=== PATIENT | male | born 1970 | race Caucasian/White ===

== ENCOUNTER 2021-04-01 23:34 | Observation (INO) | payer OTHER, SELFPAY ==
--- NOTE | ~2021-04-01 | CT_ITS ---
EXAMINATION: CTA chest PE protocol DATE: 04/02/2021 01:17 INDICATION: Chest pain TECHNIQUE: Computed tomography angiography (CTA) of the chest was performed with 100 mL Omnipaque-350 intravenous contrast timed to evaluate the pulmonary arteries. Coronal maximum intensity projection 3D-reconstructions were created by the technologist. The dose-length product (DLP) was 1045.81 mGy-cm . Automated exposure control and iterative reconstruction technique were employed. COMPARISON: None. FINDINGS: The pulmonary arteries are well-opacified. No pulmonary embolism is identified. There is m ild dependent atelectasis. Lungs are free of focal airspace opacities. There is no pleural effusion o r pneumothorax. No pathologically enlarged thoracic lymph nodes are identified. The heart size is nor mal. There is mild thoracic spondylosis. IMPRESSION: 1. No pulmonary embolism or acute cardiopulmonary abnormality. Reviewed, dictated and finalized at location A.
--- NOTE | ~2021-04-01 | XR_ITS ---
EXAMINATION: XR chest 1V portable INDICATION: Chest pain TECHNIQUE: Portable AP chest at 2357 hours COMPARISON: None available FINDINGS: The lungs are free of acute opacities. There is no pleural effusion or pneumothorax. The ca rdiomediastinal silhouette is normal. The visualized bones and soft tissues are unremarkable. IMPRESSION: 1. No acute cardiopulmonary abnormality. Reviewed, dictated and finalized at location A.
--- NOTE | ~2021-04-01 | XR_ITS ---
EXAMINATION: XR thoracic spine 2V DATE: 04/02/2021 09:09 INDICATION: Back pain TECHNIQUE: AP, lateral and lateral swimmer's views of the thoracic spine were obtained. COMPARISON: None. FINDINGS: There is no fracture, dislocation, or subluxation. The vertebral body heights and alignment are normal. There is mild loss of intervertebral disc space height in the midthoracic spine. Small d egenerative osteophytes project from the anterior endplates of multiple vertebral bodies. The paraver tebral soft tissues are unremarkable. IMPRESSION: 1. Mild thoracic spondylosis without acute findings. Reviewed, dictated and finalized at location A.
--- NOTE | 2021-04-01 23:42 | ECG_ITS ---
Measurements Intervals [place] Rate: 75 P: 59 GA: 180 QRS: 10 QRSD: 102 T: 43 QT: 379 QTc: 424 Interpretive Statements SINUS RHYTHM EARLY PRECORDIAL R/S TRANSITION BASELINE ARTIFACT- II, AVF, V1-V6 BORDERLINE ECG Electronically Signed On 04-02-2021 6:02:27 CDT by Martin Croft D.O.
[2021-04-01 23:53] VITALS: BP 172/102; PULSE 90; RESP 20; TEMP 36.4; O2SAT 96
--- NOTE | 2021-04-01 23:54 | ED.CHESTPAIN ---
HPI - Chest Pain General Chief Complaint: Chest Pain Stated Complaint: Left cp and left arm pain Time Seen by Provider: 04/01/21 23:36 Source: RN notes reviewed History of Present Illness HPI narrative: Patient presents to emergency department from home for chest and back pain. Patient states he has had pain in the left upper chest in left upper back by his left shoulder blade that radiates into his left arm since last night. States the pain will wax and wane in intensity but is been present for the past 24 hours pain is described as sharp and stabbing in nature. Nothing makes the pain better or worse he denies any fevers or chills pain over the front of the chest shortness of breath abdominal pain nausea or vomiting or any other symptom Related Data Allergies Allergy/AdvReac Type Severity Reaction Status Date / Time naproxen [From Aleve] Allergy Itching Verified 04/02/21 00:11 Review of Systems Review of Systems: Gen.: Denies fevers or chills ENT: Denies congestion Respiratory: Denies shortness of breath or cough CV: See HPI GI: Denies abdominal pain nausea, emesis or diarrhea Musculoskeletal: HPI Neuro: Denies numbness, tingling, weakness or focal weakness Skin: Denies rash Except as documented, all other systems reviewed and negative PMFSH Past Medical History Medical History (Updated 04/02/21 @ 02:33 by Sung Mcdonald DO) Patient denies significant medical history Social History Social History (Updated 04/02/21 @ 00:18 by Sung Mcdonald DO) Smoking status: Current every day smoker Exam Narrative: APPEARANCE: No acute distress, nontoxic, resting in bed EYES: EOMI HEENT: Normocephalic, atraumatic, OMM RESPIRATORY: No respiratory distress Clear to auscultation bilaterally with no rhonchi wheezing or rales. CARDIOVASCULAR: Regular rate and rhythm without murmurs rubs or gallops. Bilateral radial pulse 2+ ABDOMINAL: Soft, nontender, nondistended, no rebound or guarding MUSCULOSKELETAl: Moves all extremities. No clubbing, cyanosis or edema. Back: No midline thoracic lumbar tenderness palpation mild tenderness over left paravertebral muscles T4-6 NEURO: Awake and alert. Following commands, speech normal, no focal deficits SKIN:: Warm, dry. No rashes lesions or abrasions PSYCHIATRIC: Normal affect/mood, Course Course Emergency Course: Patient states chest pain is resolved with morphine discussed his naproxen allergy and states he can take aspirin Called and discussed with Dr. Arauz presentation work-up agrees with admission at this time Discussed with patient and family results of workup and diagnosis. Discussed need for admission. Patient and family understand and agree to current treatment plan Vital Signs Vital signs: Vital Signs Temperature 97.5 F L 04/01/21 23:53 Pulse Rate 90 04/01/21 23:53 Respiratory Rate 20 04/01/21 23:53 Blood Pressure 172/102 H 04/01/21 23:53 Pulse Oximetry 96 04/01/21 23:53 Temperature 97.5 F L 04/01/21 23:53 Pulse Rate 80 04/02/21 01:00 Respiratory Rate 18 04/02/21 01:00 Blood Pressure 171/104 H 04/02/21 01:00 Pulse Oximetry 96 04/02/21 01:00 MDM - Chest Pain Lab Data Result diagrams: 04/02/21 00:12 04/02/21 00:12 Labs: Lab Results 04/02/21 04/02/21 04/02/21 Range/Units 00:12 00:12 00:12 WBC 6.2 (4.5-10.0) K/mm3 RBC 3.91 L (4.6-6.20) M/mm3 Hgb 12.6 L (14.0-18.0) g/dL Hct 37.4 L (42.0-52.0) % MCV 95.7 (80-100) fl MCH 32.2 (26-34) pg MCHC 33.7 (32-36) g/dl RDW 12.5 (11.5-14.5) % Plt Count 201 (150-375) k/mm3 MPV 9.5 (7.4-10.4) fl Immature Gran % (Auto) 0.3 (0-0.5) % Neut % (Auto) 48.5 (45.5-73.1) % Lymph % (Auto) 38.9 (18.3-44.2) % [place] % (Auto) 8.6 H (2.6-8.5) % Eos % (Auto) 3.2 (0-4.4) % Baso % (Auto) 0.5 (0.2-1.2) % Lymph # (Auto) 2.40 (0.9-3.2) K/mm3 [place] # (Auto) 0.5 (0.1-0.6) K/mm3 Eos # (Auto
[2021-04-02] VITALS (17 sets, daily range): BP systolic 148–180; BP diastolic 80–106; PULSE 63–89; RESP 12–20; TEMP 36.4–36.6; O2SAT 95–100; BMI 42.5
[2021-04-02 00:26] LABS: Basophils Percent Auto 0.5 % (0.2-1.2); Eosinophils Absolute Auto 0.2 K/mm3 (0-0.3); Eosinophils Percent Auto 3.2 % (0-4.4); Hematocrit 37.4 % (42.0-52.0); Hemoglobin 12.6 g/dL (14.0-18.0); Immature Granulocyte Absolute 0.02 K/mm3 (0.00-0.031); Immature Granulocyte Percent A 0.3 % (0-0.5); Lymphocytes Percent Auto 38.9 % (18.3-44.2); Mean Corpuscular HGB Conc 33.7 g/dl (32-36); Mean Corpuscular Hemoglobin 32.2 pg (26-34); Mean Corpuscular Volume 95.7 fl (80-100); Mean Platelet Volume 9.5 fl (7.4-10.4); Monocytes Absolute Auto 0.5 K/mm3 (0.1-0.6); Monocytes Percent Auto 8.6 % (2.6-8.5); Neutrophils Percent Auto 48.5 % (45.5-73.1); Platelet Count Result 201 k/mm3 (150-375); Red Blood Count 3.91 M/mm3 (4.6-6.20); Red Cell Distribution Width 12.5 % (11.5-14.5); White Blood Count 6.2 K/mm3 (4.5-10.0)
[2021-04-02 00:30] LABS: Alanine Aminotransferase 42 U/L (4-50); Albumin Level 3.9 g/dL (3.5-5.1); Alkaline Phosphatase 112 U/L (38-126); Anion Gap 11 mmol/L (8-16); Aspartate Amino Transferase 39 U/L (17-59); Bilirubin,Total 0.1 mg/dL (0.2-1.3); Blood Urea Nitrogen 12 mg/dL (9-20); Calcium 8.5 mg/dL (8.4-10.2); Carbon Dioxide 19 mmol/L (22-30); Chloride 107 mmol/L (98-107); Estimated Glomerular Filt Rate > 60; Glucose 144 mg/dL (65-110); Lipase 89 U/L (23-300); Potassium 3.8 mmol/L (3.4-5.0); Sodium 137 mmol/L (137-145)
[2021-04-02 00:34] LABS: INR 0.8; Partial Thromboplastin Time 27.2 SECONDS (22.3-36.8); Prothrombin Time 11.5 Seconds (11.1-14.7)
[2021-04-02 00:45] LABS: D Dimer 0.27 ug/mL (<0.48)
[2021-04-02 00:48] LABS: Troponin I < 0.012 ng/mL (0.000-0.034)
[2021-04-02] MEDS: MORPHINE SULFATE (*CRX) 2 MG/ML INJ IV PUSH (00:54)
[2021-04-02] MEDS: ASPIRIN 81 MG CHEWABLE TABLET 324 MG PO (02:45)
[2021-04-02 03:22] LABS: Troponin I < 0.012 ng/mL (0.000-0.034)
--- NOTE | 2021-04-02 04:06 | ADMGEN ---
This patient, Tevin Rey, was admitted to IMU Room 205-01. Patient/family oriented to hospital policies and general routines including ID bracelet, bed and alarms, visiting hours, pain management, procedures, bathroom and other care routines, personal items, smoking policy, room service/diet, and visiting hours. Information on how to activate the Rapid Response Team has been discussed. Patient/Family are encouraged to report perceived risks to care and to ask questions if they do not understand what they are told or what they should do. Iqra PROCTOR [id number]
--- NOTE | 2021-04-02 05:30 | PM.IMHP ---
H&P: HPI History of Present Illness Date/Time: 04/02/21 05:30 Chief Complaint: Back pain Narrative: Patient presents to emergency department from home for recurrent upper back pain between his shoulder blade more courses left side that radiated down his left arm started on Friday night. This recurred again and Friday evening and hence came to the ER for evaluation. He has not had any similar episodes in the past. The pain is sharp and stabbing in nature nothing makes it worse or better range between 6-10 intensity before it finally abated. There is no associated shortness of breath or nausea vomiting or diaphoresis associated with the pain. He denies any obvious injury to the area. He denies any obvious chest pain during these episodes either. No abdominal pain nausea vomiting. He was evaluated for possible angina/unstable angina and ID with an EKG which showed no acute ST-T changes. Initial initial troponin was also negative along with rest of the blood work. With regard to his characteristic of the pain and further risk factors such as Tomasa current smoker morbid obesity with BMI of 42 uncontrolled hypertension is referred for observation and coronary artery evaluation. He currently denies any chest pain however the back is still sore. He was given morphine done in the ER and also also been given aspirin full dose. Review of Systems Review of Systems: - CONSTITUTIONAL: Denies weight loss, fever and chills. - HEENT: Denies changes in vision and hearing - RESPIRATORY: Denies SOB and cough. - CV: Denies palpitations and CP. Reports shoulder blade pain - GI: Denies abdominal pain, nausea, vomiting and diarrhea. - : Denies dysuria and urinary frequency. - MSK: Denies myalgia and joint pain. - SKIN: Denies rash and pruritus. - NEUROLOGICAL: Denies headache and syncope. - PSYCHIATRIC: Denies recent changes in mood. Denies anxiety and depression. All systems reviewed & are unremarkable except as noted in HPI and below Constitutional: Constitutional: Reports fatigue and Reports weakness Neurologic: Reports weakness Endocrine: Endocrine: Reports fatigue PMFSH Past Medical History Medical History (Updated 04/02/21 @ 05:39 by William Arauz MD) Patient denies significant medical history Family History Family History (Updated 04/02/21 @ 04:03 by Alethea Jimenez RN) Mother Hypertension Grandparent Diabetes mellitus Social History Social History (Updated 04/02/21 @ 00:18 by Sung Mcdonald DO) Smoking packs per day: 0.5 Smoking cigarettes per day: 10.0 Years smoked: 37 Smoking pack-years: 18.50 Smoking status: Current every day smoker Tobacco type: cigarettes Alcohol intake: current Drinks per week: 42 Substance use: never Gender identity (if verbalized by the patient): Male Spiritual care concerns: No Meds Home Medications and Allergies Home Medications Medication Instructions Recorded Confirmed Type No Home Medications 04/02/21 04/02/21 History Allergies Allergy/AdvReac Type Severity Reaction Status Date / Time naproxen [From Aleve] Allergy Itching Verified 04/02/21 00:11 Vital Signs Vital Signs - 24 hr 04/01/21 23:53 04/02/21 00:30 04/02/21 01:00 Temperature 97.5 F L Pulse Rate 90 80 80 Respiratory Rate 20 20 18 Blood Pressure 172/102 H 166/90 H 171/104 H Pulse Oximetry 96 96 96 04/02/21 03:09 04/02/21 03:47 04/02/21 04:16 Temperature 97.6 F Pulse Rate 81 89 78 Respiratory Rate 17 20 16 Blood Pressure 178/85 H 165/88 H 158/80 H Pulse Oximetry 95 100 98 Exam Narrative: APPEARANCE: No acute distress, comfortable EYES: EOMI, PERRLA HEENT: Normocephalic, atraumatic RESPIRATORY: No respiratory distress Clear to auscultation bilaterally with no rhonchi wheezing or rales. CARDIOVASCULAR: Regular rate and rhythm without murmurs rubs or gallops. Bilateral radial pulse 2+ ABDOMINAL: Soft, nontender, nondistended, no rebound o
[2021-04-02 07:02] LABS: Cholesterol 237 mg/dL (0-200); HDL Direct 53 mg/dL; Triglycerides 234 mg/dL (<150)
[2021-04-02 07:15] LABS: Troponin I < 0.012 ng/mL (0.000-0.034)
[2021-04-02 08:56] LABS: LDL Cholesterol Direct 140 mg/dL
[2021-04-02 09:36] LABS: Hemoglobin A1C 6.2 % (<5.7)
[2021-04-02] MEDS: lisinopriL 10 MG TABLET PO (10:37)
--- NOTE | 2021-04-02 11:01 | ECHO_ITS ---
Patient Info Name: Tevin Rey Age: 51 years : 1970 Gender: Male Ht: 68 in Wt: 279 lbs BSA: 2.53 m2 HR: 65 bpm BP: 173 / 101 mmHg Heart Rhythm: Sinus Rhythm Technical Quality: Fair Exam Date: 04/02/2021 2:08 PM Exam Location: [facility] Card Pulmonary Patient Status: Inpatient Admit Date: 04/02/2021 Staff Ordering Physician: Ezra Gillespie MD School Age Lead Teacher: Jewell Fitch RDCS Attending Provider: Berhane Zuleta MD Referring Physician: Verna ELIZALDE; Exam Type: CA echo dop color flow w con Study Info Indications I10 - Essential (primary) hypertension Complete two-dimensional, color flow and Doppler transthoracic echocardiogram is performed with contrast to opacify the left ventricle and to improve the deliniation of the left ventricle endocardial borders. Contrast/Agitated Saline Contrast/Ag. Saline: Definity Amount: 1.00 ml Administered By: Jocelyn Hussein RN Existing IV Access: Yes IV Access Condition: patent with no signs of infiltration Summary 1. Technically difficult study with limited views. Regional wall motion assessment limited despite definity echo contrast although no clear regional wall motion abnormalities identified. 2. Left ventricular chamber dimension is normal. 3. Left ventricular systolic function is normal, estimated at 55-60%. 4. There is mildly increased left ventricular wall thickness. 5. The left ventricular diastolic function is normal. 6. Right atrial chamber dimension is mildly enlarged. 7. There is trace mitral valve regurgitation. 8. There is trace tricuspid valve regurgitation. 9. Mild pulmonary hypertension, estimated pulmonary arterial systolic pressure is 35 mmHg. Left Ventricle Technically difficult study with limited views. Regional wall motion assessment limited despite definity echo contrast although no clear regional wall motion abnormalities identified. Left ventricular chamber dimension is normal. Left ventricular systolic function is normal, estimated at 55-60%. There is mildly increased left ventricular wall thickness. The left ventricular diastolic function is normal. Right Ventricle Right ventricular chamber dimension is normal. Right ventricular systolic function is normal. Left Atria Left atrial chamber dimension is normal. Right Atria Right atrial chamber dimension is mildly enlarged. Aortic Valve The aortic valve is not well visualized. There is no aortic valve stenosis. There is no aortic valve regurgitation. Pulmonic Valve The pulmonic valve is not well visualized. There is trace pulmonic regurgitation. Mitral Valve The mitral valve has thickened leaflets. There is trace mitral valve regurgitation. The mitral valve annulus is mildly calcified. Tricuspid Valve The tricuspid valve leaflets are normal. There is trace tricuspid valve regurgitation. Mild pulmonary hypertension, estimated pulmonary arterial systolic pressure is 35 mmHg. Pericardium/Pleural The pericardium appears normal. There is no pericardial effusion. Inferior Vena Cava Normal inferior vena cava with >50% collapse upon inspiration consistent with normal right atrial pressure, 5 mmHg. Aorta The aortic root size at the sinus of Valsalva is normal. There is mild aortic atherosclerosis. Left Ventricular Outflow Tract Name Valu
--- NOTE | 2021-04-02 11:07 | PM.CNCAR ---
Assessment and Plan Assessment and plan (1) Back pain: Code(s): M54.9 - Dorsalgia, unspecified Status: Acute Assessment and Plan: Most likely noncardiac, musculoskeletal etiology reproducible with palpation to the left upper back scapular/paraspinal region. Improved lying on left side otherwise no aggravating or relieving factors. He denies chest pain at any time. Pain control per primary service. No further invasive or ischemic workup indicated at this time based on symptom complex. Lifestyle modification counseling. Smoking cessation, weight loss, dietary changes and exercise beneficial. No clear indication for aspirin at this time. Provided pain is improved blood pressure reasonably controlled disposition per hospitalist service. If echocardiogram otherwise unremarkable no directed cardiac follow-up indicated unless he will not have follow-up in short order with primary care physician upon discharge. In that case may see within the next 4 weeks to ensure BP improving prior to establishing with primary care physician. (2) Hypertension: Code(s): I10 - Essential (primary) hypertension Status: Acute Assessment and Plan: Uncontrolled at presentation likely contributing to symptom complex and exacerbated by back pain most likely musculoskeletal etiology. 2D echocardiogram ordered. Will review when available. BP should be better controlled prior to discharge tolerating medical therapy. Would prefer systolic blood pressure less than 150 mm Hg. Patient needs to establish with primary care physicians as possible. Patient was counseled this regard, he agrees. He previously saw Dr. Moreland prior to his assisted. (3) Tobacco abuse: Code(s): Z72.0 - Tobacco use Status: Acute Assessment and Plan: Smoking cessation counseling performed. Patient verbalized understanding. (4) Dyslipidemia: Code(s): E78.5 - Hyperlipidemia, unspecified Status: Acute Assessment and Plan: Lipids elevated, LDL 140. Left modification counseling initially. Statin therapy may be considered if refractory to therapeutic lifestyle modifications. History of Present Illness History of Present Illness Consult date/time: Date of service: 04/02/21 11:07 Cardiology consultation at the request of Dr. Arauz of the [facility] service for opinion regarding complaints of back pain radiating to his arm. 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 He felt he may have been a little dehydrated then on Friday developed left upper back pain described as achy like sensation constant waxing and waning intensity with no noted aggravating or relieving factors with exception of lying on his left side seemed to less than severity. Also radiated down his left arm but then when he checked his blood pressure was quite high so at the request of his present to the emergency department. He was noted be hypertensive, serial troponins negative without acute ischemic changes on EKG. Patient states his back pain comes and goes can be quite intense otherwise mild in general. He did not note any improvement with other medications provided. Blood pressure was 180/106 mm Hg this morning for which lisinopril 10 mg daily was ordered. He otherwise feels fine denies headache, shortness of breath, palpitations, nausea vomiting. No near-syncope or syncope. He has no other prior known history of CAD or myocardial infarction. Review of Systems Review of [employer]
--- NOTE | 2021-04-02 13:04 | PM.IMPN ---
Progress Note: A&P Assessment and Plan (1) Chest pain: Code(s): R07.9 - Chest pain, unspecified Status: Acute (2) Hypertension: Code(s): I10 - Essential (primary) hypertension Status: Acute (3) Snoring: Code(s): R06.83 - Snoring Status: Acute Additional Plan # Atypical chest pain/Back pain with radiation to his arm doubt cardiac in origin however does have risk factors with current smoker uncontrolled hypertension. Cardiology evaluation for possible stress test. Obtain echo. D-dimer negative CTA negative for any PE. # Hypertension diagnosed few years back not on any medicine. started lisinopril 10 mg daily, added amlodipine 10 mg daily. # Back pain: x-rays thoracic spine showed mild thoracic spondylosis without acute findings. # Current smoker cousnled on smoking cessation. # DVT prophylaxis Lovenox # hx of snoring: with morbid obesity, will need evaluation for sleep apnea # morbid obesity # Full code status Subjective Date/time seen: 04/02/21 13:04 He reports his chest pain has resolved. Uneventful night. Hemodynamically stable. Nurse reports concern about sleep apnea. His troponins have been negative. Review of Systems Review of Systems: All systems reviewed & are unremarkable except as noted in HPI and below Exam Narrative: Gen: Alert, NAD Abd: Soft, NT, ND Heart: RRR Lungs: CTAB Ext: No lower extremity edema Objective Data Vital Signs Vital Signs: Vital Signs - 24 hr 04/01/21 23:53 04/02/21 00:30 04/02/21 01:00 Temperature 97.5 F L Pulse Rate 90 80 80 Respiratory Rate 20 20 18 Blood Pressure 172/102 H 166/90 H 171/104 H Pulse Oximetry 96 96 96 04/02/21 03:09 04/02/21 03:47 04/02/21 04:16 Temperature 97.6 F Pulse Rate 81 89 78 Respiratory Rate 17 20 16 Blood Pressure 178/85 H 165/88 H 158/80 H Pulse Oximetry 95 100 98 04/02/21 06:00 04/02/21 08:00 04/02/21 10:00 Temperature 97.9 F Pulse Rate 76 76 81 Respiratory Rate 12 Blood Pressure 180/106 H Pulse Oximetry 95 04/02/21 11:41 Temperature 98 F Pulse Rate 73 Respiratory Rate 12 Blood Pressure 173/101 H Pulse Oximetry 96 Intake/Output Intake/Output: Intake & Output 03/30/21 03/31/21 04/01/21 04/02/21 23:59 23:59 23:59 23:59 Output Total 0 Balance 0 Meds/Results Medications: Active Medications Generic Name Dose Route Start Last Admin Trade Name Dileepq PRN Reason Stop Dose Admin Lisinopril 10 mg 04/02/21 09:00 04/02/21 10:37 Lisinopril 10 Mg Tablet PO 10 mg DAILY CHRISTOPHER Administration Radiology Results: ITS Impressions Chest X-Ray 04/02/21 07:36 IMPRESSION: 1. No acute cardiopulmonary abnormality. Chest CTA 04/02/21 08:16 IMPRESSION: 1. No pulmonary embolism or acute cardiopulmonary abnormality. Thoracic Spine X-Ray 04/02/21 10:33 IMPRESSION: 1. Mild thoracic spondylosis without acute findings. Labs Labs: Laboratory Results - last 24 hr 04/02/21 04/02/21 04/02/21 00:12 00:12 00:12 WBC 6.2 RBC 3.91 L Hgb 12.6 L Hct 37.4 L MCV 95.7 MCH 32.2 MCHC 33.7 RDW 12.5 Plt Count 201 MPV 9.5 Immature Gran % (Auto) 0.3 Neut % (Auto) 48.5 Lymph % (Auto) 38.9 [place] % (Auto) 8.6 H Eos % (Auto) 3.2 Baso % (Auto) 0.5 Lymph # (Auto) 2.40 [place] # (Auto) 0.5 Eos # (Auto) 0.2 Baso # (Auto) 0.0 Abs Immat Gran (auto) 0.02 Absolute Neuts (auto) 3.0 Absolute Nucleated RBC 0.0 Nucleated RBC % 0.0 PT 11.5 INR 0.8 APTT 27.2 D-Dimer 0.27 Sodium 137 Potassium 3.8 Chloride 107 Carbon Dioxide 19 L Anion Gap 11 BUN 12 Creatinine 0.70 Estim Creat Clear Calc Not Reportable Estimated GFR > 60 Glucose 144 H Hemoglobin A1c Calcium 8.5 Total Bilirubin 0.1 L AST 39 ALT 42 Alkaline Phosphatase 112 Troponin I < 0.012 Total Protein 7.0 Albumin 3.9 Triglycerides Cholesterol
[2021-04-02] MEDS: PERFLUTREN LIPID MICROSPHERES 1.5 ML VIAL DILUTED TO 10 ML TOTAL VOLUME IV PUSH (14:42)
[2021-04-02] MEDS: amLODIPine BESYLATE 5 MG TABLET 10 MG PO (14:49)
[2021-04-02] MEDS: ACETAMINOPHEN/ASPIRIN/CAFFEINE 250-250-65 MG TABLET 1 TABLET PO (21:56)
[2021-04-03] VITALS (7 sets, daily range): BP systolic 160–166; BP diastolic 87–99; PULSE 48–87; RESP 18–20; TEMP 36.6; O2SAT 97–100
[2021-04-03 05:38] LABS: Basophils Percent Auto 0.4 % (0.2-1.2); Eosinophils Absolute Auto 0.2 K/mm3 (0-0.3); Eosinophils Percent Auto 3.2 % (0-4.4); Hematocrit 40.8 % (42.0-52.0); Hemoglobin 13.4 g/dL (14.0-18.0); Immature Granulocyte Absolute 0.02 K/mm3 (0.00-0.031); Immature Granulocyte Percent A 0.3 % (0-0.5); Lymphocytes Absolute Auto 2.01 K/mm3 (0.9-3.2); Lymphocytes Percent Auto 27.2 % (18.3-44.2); Mean Corpuscular HGB Conc 32.8 g/dl (32-36); Mean Corpuscular Hemoglobin 31.8 pg (26-34); Mean Corpuscular Volume 96.7 fl (80-100); Mean Platelet Volume 9.8 fl (7.4-10.4); Monocytes Absolute Auto 0.6 K/mm3 (0.1-0.6); Monocytes Percent Auto 8.5 % (2.6-8.5); Neutrophils Absolute Auto 4.5 K/mm3 (1.3-6.7); Neutrophils Percent Auto 60.4 % (45.5-73.1); Platelet Count Result 204 k/mm3 (150-375); Red Blood Count 4.22 M/mm3 (4.6-6.20); Red Cell Distribution Width 12.6 % (11.5-14.5); White Blood Count 7.4 K/mm3 (4.5-10.0)
[2021-04-03 05:59] LABS: Alanine Aminotransferase 41 U/L (4-50); Albumin Level 3.9 g/dL (3.5-5.1); Alkaline Phosphatase 82 U/L (38-126); Anion Gap 5 mmol/L (8-16); Aspartate Amino Transferase 35 U/L (17-59); Bilirubin,Total 0.5 mg/dL (0.2-1.3); Blood Urea Nitrogen 16 mg/dL (9-20); Calcium 8.9 mg/dL (8.4-10.2); Carbon Dioxide 24 mmol/L (22-30); Chloride 107 mmol/L (98-107); Estimated CRCL calculation 141 ml/min; Estimated Glomerular Filt Rate > 60; Glucose 99 mg/dL (65-110); Potassium 4.1 mmol/L (3.4-5.0); Sodium 136 mmol/L (137-145)
[2021-04-03] MEDS: ACETAMINOPHEN/ASPIRIN/CAFFEINE 250-250-65 MG TABLET 1 TABLET PO (06:53)
[2021-04-03] MEDS: lisinopriL 10 MG TABLET PO (09:14)
[2021-04-03] MEDS: amLODIPine BESYLATE 5 MG TABLET 10 MG PO (09:14)
--- NOTE | 2021-04-03 10:17 | PM.DS ---
DS: Admitting Diagnosis Admitting Diagnosis Chest pain DS: Discharge Diagnosis Discharge Diagnosis (1) Chest pain: Code(s): R07.9 - Chest pain, unspecified Status: Acute (2) Hypertension: Code(s): I10 - Essential (primary) hypertension Status: Acute (3) Snoring: Code(s): R06.83 - Snoring Status: Acute (4) Tobacco abuse: Code(s): Z72.0 - Tobacco use Status: Acute (5) Dyslipidemia: Code(s): E78.5 - Hyperlipidemia, unspecified Status: Acute DS: Summary Hospital Course Hospital Course: This as a 51-year-old gentleman with medical history of nicotine dependence and obesity, who presented to the emergency department on 04/02 with left-sided chest pain radiating to his left arm and his back. This was sharp and stabbing in nature and changed with position. No associated shortness of breath or other symptoms. In the emergency department, he was noted to be hemodynamically stable. EKG showed sinus rhythm and no significant findings for ischemia. CTA of the chest was unremarkable. He was admitted to the hospital and followed by Cardiology. Echocardiogram showed EF 55-60%, mildly increased left ventricular wall thickness, mild pulmonary hypertension with estimated systolic pulmonary arterial pressure 35. He was monitored closely on telemetry, was noted to have an elevated blood pressure throughout his hospital stay. He was initiated on amlodipine 10 mg daily along with lisinopril 10 mg daily. His blood work showed normal troponin. Normal electrolyte panel and kidney function. He did have elevated LDL of 140, total cholesterol 237, triglycerides 234. HDL was 53. Given no evidence of ischemic heart disease, it was recommended that he would undergo lifestyle modification with weight loss, exercise and smoking cessation which was discussed in detail. Given evidence of snoring, overnight oximetry was done and showed significant drops in saturation. Recommend close follow-up in outpatient setting with primary provider to reassess clinically and refer for sleep study. Time Spent with Patient Time attestation: Total time spent providing and/or coordinating discharge services: 40 min Exam Narrative: Gen: Alert, NAD Abd: Soft, NT, ND Heart: RRR Lungs: CTAB Ext: No lower extremity edema DS: Data Data Completed and Pending Labs on day of discharge: Labs from last 24 hours 04/03/21 04/03/21 05:07 05:07 WBC 7.4 RBC 4.22 L Hgb 13.4 L Hct 40.8 L MCV 96.7 MCH 31.8 MCHC 32.8 RDW 12.6 Plt Count 204 MPV 9.8 Immature Gran % (Auto) 0.3 Neut % (Auto) 60.4 Lymph % (Auto) 27.2 Edgar % (Auto) 8.5 Eos % (Auto) 3.2 Baso % (Auto) 0.4 Lymph # (Auto) 2.01 [place] # (Auto) 0.6 Eos # (Auto) 0.2 Baso # (Auto) 0.0 Abs Immat Gran (auto) 0.02 Absolute Neuts (auto) 4.5 Absolute Nucleated RBC 0.0 Nucleated RBC % 0.0 Sodium 136 L Potassium 4.1 Chloride 107 Carbon Dioxide 24 Anion Gap 5 L BUN 16 Creatinine 0.70 Estim Creat Clear Calc 141 Estimated GFR > 60 Glucose 99 Calcium 8.9 Total Bilirubin 0.5 AST 35 ALT 41 Alkaline Phosphatase 82 Total Protein 7.0 Albumin 3.9 Discharge Plan Discharge Consulting providers: Armando Millan Discharging Clinician: Berhane Zuleta Anticipated Discharge Date/Time: 04/03/21 10:24 Patient Disposition: Home, Self-Care Activity: as tolerated Diet: heart healthy Discharge Instructions: 1. Please establish and follow up with primary provider within 1-2 weeks of discharge 2. Your oxygenation assessment during sleep showed possible sleep apnea, this will need to be confirmed in the outpatient setting through a sleep study, which can be done through a referral by your primary provider 3. Follow-up with cardiology and 4 weeks of discharge 4. Continue to work on smoking cessation as per our discussion during your hospitalization P
== END 2021-04-03 12:02 | disposition home or self-care (01) ==
LOC: ANHED 04-02 02:33 → ANHIMU 04-02 03:24
PROVIDERS: Admitting Provider Internal Medicine; Emergency Provider Emergency Medicine; Visit Provider Internal Medicine Nephrology
DX: R07.9 Chest pain, unspecified (principal); M54.9 Dorsalgia, unspecified; F17.210 Nicotine dependence, cigarettes, uncomplicated; E66.01 Morbid (severe) obesity due to excess calories; Z68.41 Body mass index [BMI] 40.0-44.9, adult; I10 Essential (primary) hypertension; R06.83 Snoring; E78.5 Hyperlipidemia, unspecified
CPT/HCPCS: 36415; 71045; 71275; 72070; 80053; 80061; 83036; 83690; 84484; 85025; 85380; 85610; 85730; 93005; 94762; 96374; 96375; 99285; A9270; C8929; G0378; J0131; J2270; Q9957; Q9967

== ENCOUNTER 2024-08-31 15:47 | Emergency (ER) | payer OTHER, SELFPAY ==
--- NOTE | ~2024-08-31 | XR_ITS ---
EXAMINATION: XR chest 2V DATE: 08/31/2024 16:16 INDICATION: Cough, shortness of breath and fever TECHNIQUE: PA and lateral views of the chest were obtained. COMPARISON: Chest radiograph dated 04/01/[address] dated 04/02/2021 FINDINGS: The lungs remain clear with no focal airspace opacities, pulmonary edema, pleural effusion or pneumot horax. The cardiomediastinal silhouette is normal. Mild thoracic spondylosis. IMPRESSION: 1. No acute cardiopulmonary disease. Reviewed, dictated and finalized at location A. F CONTRACT OFFICER
--- NOTE | 2024-08-31 15:49 | ED_ITS ---
HPI - URI/Sore Throat General Chief Complaint: Upper Respiratory Infection Stated Complaint: Cough Time Seen by Provider: 08/31/24 15:49 Source: patient Mode of arrival: ambulatory Limitations: no limitations History of Present Illness HPI Narrative: Tevin is a 54-year-old male patient presenting to the clinic today with complaints of a cough x1 week with increasing shortness of breath. Feels as though he developed fever yesterday. Has a productive cough with some yellow phlegm at times. He is a current smoker smoking approximately 1/2 pack per day. Blood pressure is elevated in the clinic today-203/128 197/128. Has taken some cold medicine with caffeine in it. Reports he is not had his anti hypertension medications a couple months since his doctor has retired. MD elicited complaint: sore throat and nasal congestion Related Data Allergies Allergy/AdvReac Type Severity Reaction Status Date / Time naproxen (From Aleve) Allergy Itching Verified 08/31/24 15:49 Review of Systems Review of Systems: Pertinent positives per HPI. Patient denies any rash, headache, visual changes, dizziness, chest pain, palpitations, nausea, vomiting, diarrhea, constipation, abdominal pain, or any urinary issues. PMFSH Past Medical History Medical History Patient denies significant medical history Family History Family History Mother Hypertension Grandparent Diabetes mellitus Social History Social History Smoking packs per day: 0.5 Smoking cigarettes per day: 10.0 Years smoked: 37 Smoking pack-years: 18.50 Smoking status: Current every day smoker Tobacco type: cigarettes Alcohol intake: current Drinks per week: 42 Substance use: never Gender identity (if verbalized by the patient): Male Spiritual care concerns: No Comments At the time of my signature, I reviewed and agree with the nursing past medical, surgical, social, and family history. There is no relevant family history pertinent to the patient complaint. Exam Narrative: General: Well-developed, well nourished, in no apparent distress Head: Normocephalic, atraumatic Eyes: Pupils equally round and reactive to light bilaterally, EOM intact, sclera and conjunctive clear, no discharge, lids normal Ears: TMs intact and congested, ear canals clear, no drainage, grossly hearing normal. Nose: Nares patent, clear nasal discharge, no inflammation, no sinus tenderness. Mouth: Oral pharynx red without lesions or masses, good dentition, MMM. Postnasal drip Neck: Supple, trachea midline, no enlargement of anterior or posterior cervical nodes, no thyroid masses or goiter palpable. Cardio: Regular rate and rhythm, s1 and s2 normal, no murmur appreciated. Resp: Expiratory wheezing with some rhonchi heard over the left lower lung field, no rales or rubs Course Course Emergency Course: Portions of this record may have been created with voice recognition software. Level of Care: Express Care Visit Vital Signs Vital signs: Vital Signs Temperature 38.8 C H 08/31/24 16:00 Pulse Rate 109 H 08/31/24 16:00 Respiratory Rate 16 08/31/24 16:00 Blood Pressure 203/128 H 08/31/24 16:00 Pulse Oximetry 95 08/31/24 16:00 Oxygen Delivery Room Air 08/31/24 16:00 Temperature 38.8 C H 08/31/24 16:00 Pulse Rate 109 H 08/31/24 16:00 Respiratory Rate 16 08/31/24 16:00 Blood Pressure 203/128 H 08/31/24 16:00 Pulse Oximetry 95 08/31/24 16:00 Oxygen Delivery Room Air 08/31/24 16:00 Vital signs reviewed MDM - URI/Sore Throat MDM Narrative Medical decision making narrative: At the time of visit patient is resting comfortably on the exam table. Patient appears to be nontoxic. Labs: COVID and influenza testing was performed. All testing was negative Diagnostics: Chest x-ray was performed and is negative for any acute cardiopulmonary process. Plan: I suspect patient has URI with cough and congestion/bronchitis/hypertension. Resume his antihypertensive medications for [address] him on albuterol inhaler and azithromycin. Supportive measures were discussed with the patient and they voiced understanding discharge instructions and agrees to treatment plan. Return precautions reviewed Differential Diagnosis Differential diagnosis: Likely upper respiratory infection, otitis media, sinusitis, viral infection, bronchitis, influenza, pharyngitis and other (COVID) Lab Data Labs: Lab Results 08/31/24 Range/Units 16:05 POC Influenza A Ag Negative (Negative) POC Influenza B Ag Negative (Negative) POC SARS CoV-2 Ag Negative (Negative) Imaging Data Radiologist's impression: ITS Impressions Chest X-Ray 08/31/24 16:22 IMPRESSION: 1. No acute cardiopulmonary disease. Discharge Plan Discharge Clinical Impression: Bronchitis, Upper respiratory infection with cough and congestion Hypertension Qualifiers: Hypertension type: primary hypertension Qualified Code(s): I10 - Essential (primary) hypertension Patient Disposition: Home, Self-Care Condition: Stable Instructions: Antibiotic Form, Acute Bronchitis (ED), Hypertension (ED), Cold Symptoms (ED) Additional Instructions: Chest x-rays negative for any acute cardiopulmonary process. Influenza and COVID testing was negative. Take prescription medications only as prescribed-amlodipine, lisinopril, azithro mycin, and albuterol inhaler May take Coricidin HBP for cold/flu symptoms Increase fluids and stay well hydrated Tylenol/motrin for pain/fever Flonase and OTC antihistamines as directed Vicks vapor rub to open sinuses Sinus rinses for congestion Cepacol spray, cough drops, throat lozenges, warm tea with honey/lemon, gargle salt water to soothe throat BRAT diet for diarrhea Clear liquids x 24 hours then advance as tolerated for nausea/vomiting Go to the ED if you develop a worsening in your condition- high fever not controlled by Tylenol or Motrin, dehydration, weakness, lethargy, shortness of breath, or chest pain. Follow up with your PCP in 3-5 days if symptoms persist. You have an elevated blood pressure in the clinic today and I recommend follow- up with primary care physician to have this reevaluated within the next week if symptoms persist. [place] [facility] guidelines state that normal blood pressure is 120/80 or less. Anything over 120/80 is considered elevated and should be monitored. You may need to decrease you salt intake and eat a heart healthy diet to help lower you blood pressure, other treatments would include decreasing stress, weight loss, stop caffeine, and quit smoking. Your primary care provider can determine whether you need to start antihypertensive medications. Untreated high blood pressure can cause dizziness, headaches, visual changes, blindness, kidney failure, stroke, heart attack, and male impotence. Patient Language: Mongolian Prescriptions: New amlodipine [Norvasc] 10 mg tablet 10 mg PO DAILY 30 Days Qty: 30 0RF lisinopril 10 mg tablet 10 mg PO DAILY 30 Days Qty: 30 0RF azithromycin 250 mg tablet See Rx Instructions .ROUTE .COMPLEX Qty: 6 0RF Rx Instructions: For 250 mg dose pack: take 500 mg today (day 1), then 250 mg for 4 days (days 2-5) albuterol sulfate 90 mcg/actuation HFA aerosol inhaler 2 puff inhalation Q4-6H PRN (Reason: shortness of breath or wheezing) 30 Days Qty: 8.5 0RF No Action amlodipine [Norvasc] 5 mg Tablet 10 mg PO QAM Qty: 30 0RF lisinopril 10 mg Tablet 10 mg PO DAILY Qty: 30 0RF Follow-up/Referrals: UNKNOWN,DOCTOR [Non-Staff] - Time of Disposition: 16:29 Quality NIHSS Nursing Documentation ED NIHSS nursing documentation: reviewed/agree
[2024-08-31 16:00] VITALS: BP 203/128; PULSE 109; RESP 16; TEMP 38.8; O2SAT 95
[2024-08-31 16:26] LABS: EDCOVIDSCREEN Negative (Negative); EDINFLUASCREEN Negative (Negative); EDINFLUBSCREEN Negative (Negative)
== END 2024-08-31 16:35 | disposition home or self-care (01) ==
PROVIDERS: Emergency Provider Nurse Practitioner Family
DX: J40 Bronchitis, not specified as acute or chronic (principal); J06.9 Acute upper respiratory infection, unspecified; R05.9 Cough, unspecified; I10 Essential (primary) hypertension; Z20.822 Contact with and (suspected) exposure to COVID-19; F17.210 Nicotine dependence, cigarettes, uncomplicated
CPT/HCPCS: 71046; 87426; 87804; 99213; G0463

== ENCOUNTER 2024-12-30 12:36 | Observation (INO) | payer OTHER, SELFPAY ==
[2024-12-30] VITALS (15 sets, daily range): BP systolic 183–220; BP diastolic 90–134; PULSE 79–93; RESP 15–26; TEMP 36.2–36.6; O2SAT 97–99; BMI 36.6
--- NOTE | ~2024-12-30 | XR_ITS ---
EXAMINATION: XR chest 2V DATE: 12/30/2024 14:21 INDICATION: Shortness of breath TECHNIQUE: PA and lateral views of the chest were obtained. COMPARISON: Chest radiograph dated 08/31/2024 FINDINGS: Mild linear discoid atelectasis/scarring at the left costophrenic angle. No other airspace opacities, pulmonary edema, pleural effusion or pneumothorax. The cardiomediastinal silhouette is normal. Mild thoracic and moderate upper lumbar spondylosis. IMPRESSION: 1. Mild atelectasis/scarring at the left costophrenic angle. No other acute cardiopulmonary disease. Reviewed, dictated and finalized at location A. IMPRESSION: 1. Mild atelectasis/scarring at the left costophrenic angle. No other acute car diopulmonary disease.
--- OUTSIDE RECORDS SUMMARY | 2024-12-30 12:39 | XMS_ITS | Clinical Summary ---
Author Organization [facility] Care Team Providers Care Pattern Maker Programer Name Role Phone Unavailable Primary Care Provider Unavailabl e Social History Tobacco Use Types Packs/Day Years Used Date Smoking Tobacco: Never Assessed Sex and Gender Information Value Date Recorded Sex Assigned at Not on file Legal Sex Male 3:53 PM CDT Gender Identity Not on file Sexual Orientation Not on file Plan of Treatment Health Maintenance Due Date Last Done Comments Hepatitis C Virus (HCV) Screening 1971 TdaP Immunization 1971 Hepatitis B Immunization (1 of 3 - 19+ 3-dose series) 1990 Colonoscopy 02/22/2016 Colorectal Cancer Screening 02/22/2016 Cologuard 2021 Immunochemical Fecal Occult Blood 2021 Pneumococcal Immunization (5 0+ years) (1 of 1 - PCV) 2021 Zoster Immunization (1 of 2) 2021 Influenza Immunization (#1) 2024 SARS-COV-2 Immunization (3 - 2023- season) 2024 10/21/2020, 09/23/2020 Respiratory Syncytial Virus (RSV) Immunization (Adult) (1 - 1-dose 75+ series) 2046 Meningococcal Immunization (ACWY) Aged Out No longer eligible b ased on patient's age to complete this topic Pneumococcal Immunization Combined Aged Out No longer eligible b ased on patient's age to complete this topic Rotavirus Immunization Aged Out No lo nger eligible based on patient's age to complete this topic
--- NOTE | 2024-12-30 12:51 | ECG_ITS ---
Test Date: 2024-12-30 13:49:16 Measurements Intervals Laie Rate: 87 P: 41 ME: 180 QRS: 10 QRSD: 112 T: 129 QT: 388 QTc: 468 Interpretive Statements SINUS RHYTHM POSSIBLE LEFT ATRIAL ENLARGEMENT [-0.1mV P WAVE IN V1/V2] LEFT VENTRICULAR HYPERTROPHY AND ST-T CHANGE [VOLTAGE CRITERIA PLUS ST/T ABNORMALITY] No previous ECG available for comparison Electronically Signed On 12-31-2024 11:06:20 CDT by Александр Jin M.D.
--- NOTE | 2024-12-30 13:43 | ED_ITS ---
HPI - Recheck/Abnormal Lab/Rx General Chief Complaint: Recheck/Abnormal Lab/Rx <Stephanie Wallis PA-C - Last Filed: 12/31/24 09:26> Stated Complaint: htn, shortness of breath <Stephanie Wallis PA-C - Last Filed: 12/31/24 09:26> Time Seen by Provider: 12/30/24 13:43 <Stephanie Wallis PA-C - Last Filed: 12/31/24 09:26> Focused HPI: This is a 54 year old male that presents to the ER for evaluation after a PCP visit. Reports he has had some shortness of breath over the last month, worse with exertion. Reports when they took his vital signs at his appointment today his blood pressure was very elevated and they prompted him to be seen in the ER. Reports he has not taken his blood pressure medication in a couple of months. Reports some lower extremity edema. GENERAL: Well-appearing, well-nourished, and in no acute distress. HEAD: Normocephalic, atraumatic. CHEST: Clear to auscultation. ?No respiratory distress. HEART: Regular rate and rhythm.? NEURO: ?Alert and oriented x3. Patient screened in triage and initial orders placed.? ?Additional care and disposition to be based upon?diagnostic testing and treatment. <Stephanie Wallis PA-C - Last Filed: 12/31/24 09:26> History of Present Illness HPI narrative: rib fractures patient did 4-year-old gentleman presents emergency department with chief complaint of shortness of breath. Patient states that he has had history of hypertension and reports that he has been out of his blood pressure medicine since approximately August the patient reports that he went to establish care with a primary care provider in found his blood pressure to be extremely elevated in the 200s and the patient also reports that over the last month he has been having shortness of breath worse with exertion the patient also reports he has had some trace edema in his lower extremities <Bronson Avina MD - Last Filed: 12/30/24 15:50> Related Data Allergies/Adverse Reactions: Allergies Allergy/AdvReac Type Severity Reaction Status Date / Time naproxen (From Aleve) Allergy Itching Verified 12/30/24 12:50 <Stephanie Wallis PA-C - Last Filed: 12/31/24 09:26> Review of Systems 2 Review of Systems: A 10 system review of systems was completed on the patient and is negative except for what is stated in the HPI. Nursing and ancillary documentation was reviewed. <Bronson Avina MD - Last Filed: 12/30/24 15:50> [facility] Past Medical History Medical History: Medical History (Updated 12/30/24 @ 21:52 by Josie Nielsen APRN) Tobacco abuse Hypertension BMI 38.0-38.9,adult Dyslipidemia <Stephanie Wallis PA-C - Last Filed: 12/31/24 09:26> Family History Family History: Family History Mother Hypertension Grandparent Diabetes mellitus Father No problems noted. Sibling No problems noted. <Stephanie Wallis PA-C - Last Filed: 12/31/24 09:26> Social History Social History: Social History Smoking packs per day: 1 Smoking cigarettes per day: 20.0 Years smoked: 40 Smoking pack-years: 40.00 Smoking status: Current every day smoker Tobacco type: cigarettes Second hand tobacco smoke exposure: No Alcohol intake: current Drinks per week: 42 Substance use: never Substance use type: does not use Do You Feel Safe in your Home?: Yes Lack of Transportation: No Lack of Food: Never True Current Housing: I Have Housing Concerned About Future Housing: No Difficulty Paying Gas/Electric Bills: No Difficulty Paying for Meds: No Currently Unemployed: No Education: High School Diploma/GED Difficulty w/ Childcare or Family Care: No Living arrangements: with family 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 HEAD: Normocephalic, atraumatic. EYES: PERRLA and EOMI. ENT: Nares clear, no rhinorrhea or epistaxis. Mucous membranes moist. NECK: Supple. CHEST: Clear to auscultation. No respiratory distress. HEART: Regular rate and rhythm. No murmur heard. Normal peripheral pulses. ABDOMEN: Soft, nontender, nondistended, normal active bowel sounds. EXTREMITIES: Normal range of motion. Trace edema. SKIN: Warm, dry, no rash. NEURO: No focal deficits. Alert and oriented x3. PSYCH: Normal mood and affect. <Bronson Avina MD - Last Filed: 12/30/24 15:50> Course Vital Signs Vital signs: Vital Signs Temperature 97.2 F L 12/30/24 12:48 Pulse Rate 93 12/30/24 12:48 Respiratory Rate 16 12/30/24 12:48 Blood Pressure 219/115 H 12/30/24 12:48 Pulse Oximetry 97 12/30/24 12:48 Temperature 97.8 F 12/31/24 08:00 Pulse Rate 85 12/31/24 08:00 Respiratory Rate 18 12/31/24 08:00 Blood Pressure 206/128 H 12/31/24 08:00 Pulse Oximetry 99 12/31/24 08:00 Oxygen Delivery Room Air 12/31/24 04:00 <Stephanie Wallis PA-C - Last Filed: 12/31/24 09:26> Vital Signs Temperature 97.2 F L 12/30/24 12:48 Pulse Rate 93 12/30/24 12:48 Respiratory Rate 16 12/30/24 12:48 Blood Pressure 219/115 H 12/30/24 12:48 Pulse Oximetry 97 12/30/24 12:48 Temperature 97.8 F 12/31/24 08:00 Pulse Rate 85 12/31/24 08:00 Respiratory Rate 18 12/31/24 08:00 Blood Pressure 206/128 H 12/31/24 08:00 Pulse Oximetry 99 12/31/24 08:00 Oxygen Delivery Room Air 12/31/24 04:00 <Bronson Avina MD - Last Filed: 12/30/24 15:50> MDM - Recheck/Abnormal Lab/Rx MDM Narrative Medical decision making narrative: differential diagnosis includes hypertensive crisis, ACS, CHF EKG showed LVH without evidence of acute ST elevation or ST depression. Laboratory studies showed a BNP of 3750 troponin was elevated at 0.073 patient is not having active chest pain at this time <Bronson Avina MD - Last Filed: 12/30/24 15:50> Lab Data Result diagrams: 12/30/24 13:53 12/30/24 13:53 <Stephanie Wallis PA-C - Last Filed: 12/31/24 09:26> Labs: Lab Results 12/30/24 Range/Units 13:53 WBC 6.5 (4.5-10.0) K/mm3 RBC 4.49 L (4.6-6.20) M/mm3 Hgb 14.2 (14.0-18.0) g/dL Hct 42.7 (42.0-52.0) % MCV 95.1 (80-100) fl MCH 31.6 (26-34) pg MCHC 33.3 (32-36) g/dl RDW 12.4 (11.5-14.5) % Plt Count 168 (150-375) k/mm3 MPV 9.9 (7.4-10.4) fl Immature Gran % (Auto) 0.3 (0-0.5) % Neut % (Auto) 64.9 (45.5-73.1) % Lymph % (Auto) 22.9 (18.3-44.2) % [place] % (Auto) 9.2 H (2.6-8.5) % Eos % (Auto) 2.2 (0-4.4) % Baso % (Auto) 0.5 (0.2-1.2) % Lymph # (Auto) 1.49 (0.9-3.2) K/mm3 [place] # (Auto) 0.6 (0.1-0.6) K/mm3 Eos # (Auto) 0.1 (0-0.3) K/mm3 Baso # (Auto) 0.0 (0.0-0.1) K/mm3 Abs Immat Gran (auto) 0.02 (0.00-0.031) K/mm3 Absolute Neuts (auto) 4.2 (1.3-6.7) K/mm3 Absolute Nucleated RBC 0.000 (0.0-0.012) K/mm3 Nucleated RBC % 0.0 (0.0-0.2) % PT 12.6 (11.1-14.7) Seconds INR 0.9 APTT 26.2 (22.3-36.8) Seconds Sodium 137 (137-145) mmol/L Potassium 3.7 (3.4-5.0) mmol/L Chloride 105 (98-107) mmol/L Carbon Dioxide 25 (22-30) mmol/L Anion Gap 7 (4-12) mmol/L BUN 27 H D (9-20) mg/dL Creatinine 1.09 (0.7-1.3) mg/dL Estim Creat Clear Calc 89 ml/min Estimated GFR > 60 (59 - ) Glucose 149 H (65-110) mg/dL Hemoglobin A1c 5.9 H (<5.7) % Calcium 9.2 (8.4-10.2) mg/dL Total Bilirubin 0.6 (0.2-1.3) mg/dL AST 48 (17-59) U/L ALT 47 (6-50) U/L Alkaline Phosphatase 108 (38-126) U/L Troponin I 0.073 H* (0.000-0.034) ng/mL NT-Pro-B Natriuret Pep 3750 H (19.9-100) pg/mL Total Protein 7.0 (6.3-8.2) g/dL Albumin 4.0 (3.5-5.1) g/dL Lipase 227 (23-300) U/L <Stephanie Wallis PA-C - Last Filed: 12/31/24 09:26> Lab Results 12/30/24 Range/Units 13:53 WBC 6.5 (4.5-10.0) K/mm3 RBC 4.49 L (4.6-6.20) M/mm3 Hgb 14.2 (14.0-18.0) g/dL Hct 42.7 (42.0-52.0) % MCV 95.1 (80-100) fl MCH 31.6 (26-34) pg MCHC 33.3 (32-36) g/dl RDW 12.4 (11.5-14.5) % Plt Count 168 (150-375) k/mm3 MPV 9.9 (7.4-10.4) fl Immature Gran % (Auto) 0.3 (0-0.5) % Neut % (Auto) 64.9 (45.5-73.1) % Lymph % (Auto) 22.9 (18.3-44.2) % [place] % (Auto) 9.2 H (2.6-8.5) % Eos % (Auto) 2.2 (0-4.4) % Baso % (Auto) 0.5 (0.2-1.2) % Lymph # (Auto) 1.49 (0.9-3.2) K/mm3 [place] # (Auto) 0.6 (0.1-0.6) K/mm3 Eos # (Auto) 0.1 (0-0.3) K/mm3 Baso # (Auto) 0.0 (0.0-0.1) K/mm3 Abs Immat Gran (auto) 0.02 (0.00-0.031) K/mm3 Absolute Neuts (auto) 4.2 (1.3-6.7) K/mm3 Absolute Nucleated RBC 0.000 (0.0-0.012) K/mm3 Nucleated RBC % 0.0 (0.0-0.2) % PT 12.6 (11.1-14.7) Seconds INR 0.9 APTT 26.2 (22.3-36.8) Seconds Sodium 137 (137-145) mmol/L Potassium 3.7 (3.4-5.0) mmol/L Chloride 105 (98-107) mmol/L Carbon Dioxide 25 (22-30) mmol/L Anion Gap 7 (4-12) mmol/L BUN 27 H D (9-20) mg/dL Creatinine 1.09 (0.7-1.3) mg/dL Estim Creat Clear Calc 89 ml/min Estimated GFR > 60 (59 - ) Glucose 149 H (65-110) mg/dL Hemoglobin A1c 5.9 H (<5.7) % Calcium 9.2 (8.4-10.2) mg/dL Total Bilirubin 0.6 (0.2-1.3) mg/dL AST 48 (17-59) U/L ALT 47 (6-50) U/L Alkaline Phosphatase 108 (38-126) U/L Troponin I 0.073 H* (0.000-0.034) ng/mL NT-Pro-B Natriuret Pep 3750 H (19.9-100) pg/mL Total Protein 7.0 (6.3-8.2) g/dL Albumin 4.0 (3.5-5.1) g/dL Lipase 227 (23-300) U/L <Bronson Avina MD - Last Filed: 12/30/24 15:50> Imaging Data Radiologist's impression: ITS Impressions Chest X-Ray 12/30/24 14:58 IMPRESSION: 1. Mild atelectasis/scarring at the left costophrenic angle. No other acute cardiopulmonary disease. <Stephanie Wallis PA-C - Last Filed: 12/31/24 09:26> Critical Care Time Critical Care Time Critical Care Time: No <Stephanie Wallis PA-C - Last Filed: 12/31/24 09:26> Discharge Plan Discharge Clinical Impression: Hypertensive urgency, Elevated troponin <Stephanie Wallis PA-C - Last Filed: 12/31/24 09:26> Patient Disposition: Still a Patient <Stephanie Wallis PA-C - Last Filed: 12/31/24 09:26> Condition: Stable <Stephanie Wallis PA-C - Last Filed: 12/31/24 09:26> Time of Disposition: 15:48 <Stephanie Wallis PA-C - Last Filed: 12/31/24 09:26> 15:48 <Bronson Avina MD - Last Filed: 12/30/24 15:50>
[2024-12-30 14:02] LABS: Basophils Percent Auto 0.5 % (0.2-1.2); Eosinophils Absolute Auto 0.1 K/mm3 (0-0.3); Eosinophils Percent Auto 2.2 % (0-4.4); Hematocrit 42.7 % (42.0-52.0); Hemoglobin 14.2 g/dL (14.0-18.0); Immature Granulocyte Absolute 0.02 K/mm3 (0.00-0.031); Immature Granulocyte Percent A 0.3 % (0-0.5); Lymphocytes Absolute Auto 1.49 K/mm3 (0.9-3.2); Lymphocytes Percent Auto 22.9 % (18.3-44.2); Mean Corpuscular HGB Conc 33.3 g/dl (32-36); Mean Corpuscular Hemoglobin 31.6 pg (26-34); Mean Corpuscular Volume 95.1 fl (80-100); Mean Platelet Volume 9.9 fl (7.4-10.4); Monocytes Absolute Auto 0.6 K/mm3 (0.1-0.6); Monocytes Percent Auto 9.2 % (2.6-8.5); Neutrophils Absolute Auto 4.2 K/mm3 (1.3-6.7); Neutrophils Percent Auto 64.9 % (45.5-73.1); Platelet Count Result 168 k/mm3 (150-375); Red Blood Count 4.49 M/mm3 (4.6-6.20); Red Cell Distribution Width 12.4 % (11.5-14.5); White Blood Count 6.5 K/mm3 (4.5-10.0)
[2024-12-30 14:14] LABS: INR 0.9; Prothrombin Time 12.6 Seconds (11.1-14.7)
[2024-12-30 14:15] LABS: Partial Thromboplastin Time 26.2 Seconds (22.3-36.8)
[2024-12-30 14:25] LABS: Alanine Aminotransferase 47 U/L (6-50); Alkaline Phosphatase 108 U/L (38-126); Anion Gap 7 mmol/L (4-12); Aspartate Amino Transferase 48 U/L (17-59); Bilirubin,Total 0.6 mg/dL (0.2-1.3); Blood Urea Nitrogen 27 mg/dL (9-20); Calcium 9.2 mg/dL (8.4-10.2); Carbon Dioxide 25 mmol/L (22-30); Chloride 105 mmol/L (98-107); Estimated CRCL calculation 89 ml/min; Estimated Glomerular Filt Rate > 60; Glucose 149 mg/dL (65-110); Lipase 227 U/L (23-300); Potassium 3.7 mmol/L (3.4-5.0); Sodium 137 mmol/L (137-145)
[2024-12-30 14:30] LABS: NT Pro B Type Natriuretic Pept 3750 pg/mL (19.9-100); Troponin I 0.073 ng/mL (0.000-0.034)
--- OUTSIDE RECORDS SUMMARY | 2024-12-30 15:09 | XMS_ITS | Clinical Summary ---
Author Organization [facility] Care Team Providers Care Supervisor Cooler Service Name Role Phone Unavailable Primary Care Provider [...]
--- OUTSIDE RECORDS SUMMARY | 2024-12-30 15:09 | XMS_ITS | Referral Summary ---
Author Organization [facility] [place] [address] Address [address] [place] [address] Care Team Providers Care Lock Up Worker Name Role Phone No, Physician Primary Care Provider [phone] Allergies Active Allergy Reactions Criticality Noted Date Comments Naproxen Itching Low 05/02/2021 Medications omeprazole (PriLOSEC) 20 mg capsule Take 20 mg by mouth daily Active amLODIPine (NORVASC) 10 mg tablet Take 1 tablet (10 mg total) by mouth daily 30 tablet 3 05/02/2021 Active lisinopriL (PRINIVIL,ZESTRI L) 10 mg tablet Take 1 tablet (10 mg total) by mouth daily 30 tablet 2 05/02/2021 Active Active Problems Problem Noted Date Diagnosed Date Other forms of angina pectoris 05/02/2021 Essential hypertension 05/02/2021 Morbid (severe) obesity due to excess calories 0 05/02/2021 Body mass index 40.0-44.9, adult (CMS/HCC) 05/02 Social History Tobacco Use Types Packs/Day Years Used Date Smoking Tobacco: Every Day Cigarettes Started: 05/02/2021 Smokeless Tobacco: Current Tobacco Cessation:Ready to Q uit: No; Counseling Given: Yes Personal Safety Answer Date Recorded Getting School Help Needed Not on file 09/28 Sex and Gender Information Value Date Recorded Sex Assigned at Not on file Legal Sex Male 4:51 AM RELATIONS MGR Gender Identity Not on file Sexual Orientation Not on file Last Filed Vital Signs Vital Sign Reading Time Taken Comments Blood Pressure 166/82 05/02/2021 9:09 AM CDT Pulse 84 05/02/2021 9:09 AM CDT Temperature - - Respiratory Rate 18 05/02/2021 9:09 AM CDT Oxygen Saturation - - Inhaled Oxygen Concentration - - Weight 123.4 kg (272 lb) 05/02/2021 9:09 AM CDT Height 175.3 cm (5' 9) 05/02/2021 9:09 AM CDT Body Mass Index 40.17 05/02/2021 9:09 AM CDT Plan of Treatment Not on file Insurance [facility] Address: [place] [address] Care Teams Lock Up Worker Relationship Specialty Start Date End Date No, Physician PCP - General 04/02/21
--- OUTSIDE RECORDS SUMMARY | 2024-12-30 15:09 | XMS_ITS | Clinical Summary ---
Author Organization [facility] [place] [address] Address [address] [place] [address] Care Team Providers Care Drilling Fluids Specialist Name Role Phone No, Physician Primary Care Provider [phone] Allergies Active Allergy Reactions Criticality Noted Date [...] on file Legal Sex Male 4:51 AM DIRECTOR RECREATION Gender Identity Not on file Sexual Orientation Not on file Obstetrics History Last Filed Vital Signs Vital Sign Reading [...] Treatment Not on file Insurance [employer] Care Teams Drilling Fluids Specialist Relationship Specialty Start Date End Date No, Physician PCP - General 04/02/21
[2024-12-30] MEDS: hydrALAZINE HCL 20 MG/ML VIAL 10 MG IV PUSH ×2 (15:34→20:42)
[2024-12-30] MEDS: ASPIRIN 81 MG CHEWABLE TABLET 324 MG PO (15:35)
[2024-12-30] MEDS: amLODIPine BESYLATE 5 MG TABLET PO (15:54)
--- NOTE | 2024-12-30 16:14 | PM.IMHP ---
H&P: [facility] History of Present Illness Date/Time: 12/30/24 16:14 Chief Complaint: Hypertension Narrative: 54 y/o M with PMH of current everyday smoker, HLD, and HTN presents here with hypertension. The patient presents here from a local PCP office for further evaluation of hypertension. He was at the office to establish care when he was found to be significantly hypertensive. Upon arrival to the emergency department, the patient's blood pressure was 219/115. He reports associated mild headache. He denies vision changes or dizziness. He reports a history of hypertension. Last regularly took HTN medications in 2017. Reports poor compliance when he was prescribed the medication. Initial VS at presentation: 97.2? F, HR 93, R 16, 219/115, and 97% on RA. ED workup showed: No leukocytosis, no anemia, normal coags, creatinine 1.09 and GFR >60, initial troponin 0.073, BNP 3750. CXR showed mild atelectasis/ scarring at the left costophrenic angle, no other acute cardiopulmonary disease. EKG showed sinus rhythm, rate 87, possible left atrial enlargement, LVH and ST-T change. Review of Systems Review of Systems: All systems reviewed & are unremarkable except as noted in HPI and below [facility] Past Medical History Medical History (Updated 12/30/24 @ 21:52 by Josie Nielsen APRN) Tobacco abuse Hypertension BMI 38.0-38.9,adult Dyslipidemia Family History Family History Mother Hypertension Grandparent Diabetes mellitus Father No problems noted. Sibling No problems noted. Social History Social History Smoking packs per day: 1 Smoking cigarettes per day: 20.0 Years smoked: 40 Smoking pack-years: 40.00 Smoking status: Current every day smoker Tobacco type: cigarettes Second hand tobacco smoke exposure: No Alcohol intake: current Drinks per week: 42 Substance use: never Substance use type: does not use Do You Feel Safe in your Home?: Yes Lack of Transportation: No Lack of Food: Never True Current Housing: I Have Housing Concerned About Future Housing: No Difficulty Paying Gas/Electric Bills: No Difficulty Paying for Meds: No Currently Unemployed: No Education: High School Diploma/GED Difficulty w/ Childcare or Family Care: No Living arrangements: with family 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 Gender identity (if verbalized by the patient): Male Spiritual care concerns: No Meds Home Medications and Allergies Allergies Allergy/AdvReac Type Severity Reaction Status Date / Time naproxen (From Aleve) Allergy Itching Verified 12/30/24 12:50 Vital Signs Vital Signs - 24 hr 12/30/24 12:48 12/30/24 14:57 Temperature 97.2 F L Pulse Rate 93 79 Respiratory Rate 16 15 Blood Pressure 219/115 H 201/134 H Pulse Oximetry 97 98 Exam Const: General: comfortable and no acute distress Other: In and , male, nontoxic appearance, obese body habitus HENMT: Face/Nose/Sinus: Normal nares present Mouth: Yes moist mucous membranes Eyes: General: appearance normal, both eyes and all related structures Sclera: sclerae normal Pupils: Equal, round and reactive pupils present EOM: EOMs intact bilaterally Resp: Effort & Inspection: normal respiratory effort Auscultation: clear to auscultation bilaterally Cardio: Rate: regular rate Rhythm: regular rhythm Other: S1-S2 present without murmur, rub, ectopy GI: Other: Abdomen rounded, soft, nontender. Normoactive bowel sounds in all quadrants. Skin: General skin exam: normal color and no rashes or lesions noted Wounds: no wounds Neuro: Speech: normal speech Motor exam (neuro): 5/5 motor strength present throughout Sensory Exam: normal sensation Other: A&O x4 Extrem: General: normal to inspection Psych: Mental Status: mental status grossly normal Affect: normal affect Other: Good insight judgment, pleasant H&P: Results Labs Labs: Short CBC 12/30/24 Range/Units 13:53 WBC 6.5 (4.5-10.0) K/mm3 Hgb 14.2 (14.0-18.0) g/dL Hct 42.7 (42.0-52.0) % Plt Count 168 (150-375) k/mm3 BMP 12/30/24 13:53 Sodium 137 Potassium 3.7 Chloride 105 Carbon Dioxide 25 BUN 27 H D Creatinine 1.09 Glucose 149 H Calcium 9.2 Cardiac Enzymes 12/30/24 Range/Units 13:53 Troponin I 0.073 H* (0.000-0.034) ng/mL Liver Function 12/30/24 Range/Units 13:53 Total Bilirubin 0.6 (0.2-1.3) mg/dL AST 48 (17-59) U/L ALT 47 (6-50) U/L Alkaline Phosphatase 108 (38-126) U/L Albumin 4.0 (3.5-5.1) g/dL Assessment and Plan Assessment and plan (1) Hypertensive urgency: Code(s): I16.0 - Hypertensive urgency Status: Acute Assessment and Plan: - initial BP 219/115. Initial treatment with hydralazine 10 mg IVP with reduction to 187/108. - start amlodipine 10 mg PO daily, previously on same. Patient has also been prescribed lisinopril 10 mg daily, will hold on initiating both at this time. Monitor response to amlodipine, suspect he will need second-line agent. - Hydralazine p.r.n. for BP greater than 200/100 to avoid rapid reduction in BP - monitor closely (2) Elevated troponin: Code(s): R79.89 - Other specified abnormal findings of blood chemistry Status: Acute Assessment and Plan: - EKG, initial:Sinus rhythm, rate 87, possible left atrial enlargement, LVH and ST-T change. No previous EKG available for comparison. Awaiting formal read. - CXR: Mild atelectasis/ scarring at the left costophrenic angle, no other acute cardiopulmonary disease. - Troponin: 0.073 x2, 6 hour ordered - ASA 324 given, continue as 81 daily - SL nitro PRN - suspect elevation secondary to significant hypertension, if flat and patient remains asymptomatic will hold on Cardiology consultation. - BNP elevated, check echo. No evidence of volume overload on exam or on imaging. Will hold on initiation of diuretic at this time. - telemetry monitoring (3) Dyslipidemia: Code(s): E78.5 - Hyperlipidemia, unspecified Status: Acute Assessment and Plan: - recheck lipid panel (4) Elevated glucose: Code(s): R73.09 - Other abnormal glucose Status: Acute Assessment and Plan: - no history of diabetes, glucose 149 upon initial evaluation - check A1c -> 5.9%. Patient educated that he is considered prediabetic and recommended lifestyle changes such as diet changes and exercise. Patient reports understanding. Plan Diet: heart healthy GI Prophylaxis: not currently indicated DVT Prophylaxis: Lovenox SQ IV fluids: none Lines/Tubes: peripheral IV Code Status: full code Quality VTE Prophylaxis VTE prophylaxis: pharmacologic ordered Hospitalist MIPS Advance Care Plan I have confirmed that the patient's Advanced Care Plan is present, code status is documented, or surrogate decision maker is listed in patient medical record.: Yes Medication Reconciliation I have utilized all available resources to obtain, update and review the patients current medications (includes all prescriptions, OTC, herbals, cannabis, and nutritional supplements).: Yes
--- NOTE | 2024-12-30 17:59 | ADMGEN ---
This patient, Tevin Rey, was admitted to IMU Room 212-01 at 1706. Patient/family oriented to hospital policies and general routines including ID bracelet, bed and alarms, visiting hours, pain management, procedures, bathroom and other care routines, personal items, smoking policy, room service/diet, and visiting hours. Information on how to activate the Rapid Response Team has been discussed. Patient/Family are encouraged to report perceived risks to care and to ask questions if they do not understand what they are told or what they should do.
[2024-12-30 18:05] LABS: Troponin I 0.073 ng/mL (0.000-0.034)
[2024-12-30 19:21] LABS: Hemoglobin A1C 5.9 % (<5.7)
[2024-12-30 22:03] LABS: Cholesterol 306 mg/dL (0-200); HDL Direct 77 mg/dL; Triglycerides 114 mg/dL (<150)
[2024-12-30 22:14] LABS: LDL Cholesterol Direct 191 mg/dL
[2024-12-30 22:20] LABS: Troponin I 0.078 ng/mL (0.000-0.034)
[2024-12-31] VITALS (17 sets, daily range): BP systolic 154–207; BP diastolic 80–140; PULSE 73–98; RESP 16–22; TEMP 36.6–36.8; O2SAT 98–100
--- NOTE | 2024-12-31 | ECHO_ITS ---
Patient Info Name: Tevin Rey Age: 54 years : 1970 Gender: Male Ht: 69 in Wt: 246 lbs BSA: 2.37 m2 HR: 84 bpm BP: 195 / 95 mmHg Technical Quality: Fair Exam Date: 12/31/2024 12:12 PM Patient Status: I Admit Date: 12/30/2024 Exam Type: CA echo dop color flow w con Complete two-dimensional, color flow and Doppler transthoracic echocardiogram is performed with contrast to opacify the left ventricle and to improve the deliniation of the left ventricle endocardial borders. Staff Referring Physician: Stephanie Wallis PAC Instructor Knitting: Renetta Kwok Attending Provider: Romeo Steve Contrast/Agitated Saline Contrast/Ag. Saline: Definity Amount: 3.00 ml Existing IV Access: Yes IV Access Condition: patent with no signs of infiltration Summary 1. Left ventricular chamber dimension is normal. 2. Left ventricular systolic function is normal, estimated at 60-65. 3. There is mild concentric increased left ventricular wall thickness. 4. The left ventricular diastolic function is abnormal. 5. Definity contrast administered improved wall motion interpretation. 6. E/e' 15 is elevated. 7. Left atrial chamber dimension is moderately enlarged. 8. Right atrial chamber dimension is moderately enlarged. 9. There is mild aortic valve sclerosis. 10. There is mild mitral valve regurgitation. 11. There is mild tricuspid valve regurgitation. 12. Moderate pulmonary hypertension, estimated pulmonary arterial systolic pressure is 53 mmHg. Left Ventricle E/e' 15 is elevated. Left ventricular chamber dimension is normal. Left ventricular systolic function is normal, estimated at 60-65. There is mild concentric increased left ventricular wall thickness. The left ventricular diastolic function is abnormal. Definity contrast administered improved wall motion interpretation. Right Ventricle Right ventricular chamber dimension is normal. Right ventricular systolic function is normal and with normal TAPSE 2.0 cm. Left Atria Left atrial chamber dimension is moderately enlarged. Right Atria Right atrial chamber dimension is moderately enlarged. Aortic Valve The aortic valve is trileaflet. There is mild aortic valve sclerosis. There is no aortic valve stenosis. There is no aortic valve regurgitation. Pulmonic Valve There is no pulmonic regurgitation. Mitral Valve There is no mitral valve stenosis. There is mild mitral valve regurgitation. Tricuspid Valve There is mild tricuspid valve regurgitation. Moderate pulmonary hypertension, estimated pulmonary arterial systolic pressure is 53 mmHg. Pericardium/Pleural There is no pericardial effusion. Inferior Vena Cava Normal inferior vena cava with >50% collapse upon inspiration consistent with normal right atrial pressure, 5 mmHg. Aorta The aortic root size at the sinus of Valsalva is normal. Left Ventricular Outflow Tract Name Value Normal LVOT 2D LVOT Diameter 2.3 cm LVOT Doppler LVOT Peak Velocity 122 cm/s LVOT Peak Gradient 6 mmHg LVOT Mean Gradient 4 mmHg LVOT VTI 24 cm LVOT VTI/AV VTI Ratio 0.8 LVOT Stroke Volume 96 ml LVOT CO 22.8 l/min LVOT CI 9.6 l/min/m2 Pulmonic Valve Name Value Normal PV Doppler PV Peak Velocity 124 cm/s PV Peak Gradient 6 mmHg Mitral Valve Name Value Normal MV Diastolic Function MV E Peak Velocity 102 cm/s MV A Peak Velocity 82 cm/s MV E/A 1.2 MV Decel Time (PW) 169 ms MV Annular TDI MV E/e' (Septal) 13.2 MV E/e' (Lateral) 17.7 MV E/e' (Average) 15.4 Tricuspid Valve Name Value Normal TV Regurgitation Doppler TR Peak Velocity 347 cm/s TR Peak Gradient 44 mmHg Estimated PAP/RSVP RA Pressure 5 mmHg <=5 PA Systolic Pressure 53 mmHg <36 RV Systolic Pressure 53 mmHg <36 TV Annular TDI TV Lateral Taryn s' Velocity 12.6 cm/s >=9.5 Aorta Name Value Normal Ascending Aorta Ao Root Diameter (MM) 3.7 cm Ao Root Diam Index (MM) 1.5 cm/m2 Aortic Valve Name Value Normal AV Doppler AV Peak Velocity 160 cm/s AV Peak Gradient 10 mmHg AV Mean Gradient 6 mmHg AV VTI 28 cm AV Area (Cont Eq VTI) 3.4 cm2 >=3.0 AV Area (Cont Eq Chevy) 3.1 cm2 AV DI (Chevy) 0.77 AV Regurgitation 2D LVOT Area 4.1 cm2 Ventricles Name Value Normal LV Dimensions 2D/MM IVS Diastolic Thickness (2D) 1.4 cm 0.6-1.0 LVID Diastole (2D) 6.0 cm 4.2-5.8 LVIW Diastolic Thickness (2D) 1.3 cm 0.6-1.0 LVID Systole (2D) 4.7 cm 2.5-4.0 LVOT Diameter 2.3 cm LV Mass (2D Cubed) 361.42 g 88.00-224.00 LV Mass Index (2D Cubed) 152 g/m2 49-115 Relative Wall Thickness (2D) 0.43 <=0.42 LV Fractional Shortening/Ejection Fraction 2D/MM LV Fractional Shortening (2D) 22 % 25-43 LV EF (2D Teichholz) 43 % LV Diastolic Volume (4C MOD) 219 ml LV EF (4C MOD) 42 % LV Diastolic Volume (2C MOD) 223 ml LV EF (2C MOD) 43 % LV Diastolic Volume (BP MOD) 223 ml 62-150 LV Diastolic Volume Index (BP MOD) 94 ml/m2 34-74 LV Systolic Volume (BP MOD) 128 ml 21-61 LV Systolic Volume Index (BP MOD) 54 ml/m2 11-31 LV EF (BP MOD) 42 % 52-72 LV Diastolic Length (4C) 10.5 cm LV Systolic Length (4C) 9.0 cm LV Stroke Volume (4C MOD) 93 ml RV Dimensions 2D/MM RVID Diastole (2D) 4.4 cm 2.1-3.5 Atria Name Value Normal LA Dimensions LA Dimension (MM) 4.9 cm 3.0-4.0 LA Volume (4C A-L) 95 ml LA Volume (BP A-L) 88 ml RA Dimensions RA Systolic Major Ora Length (4C) 6.1 cm 2.1-2.7 RA Area (4C) 25.8 cm2 <=18.0 Report Signatures
--- NOTE | 2024-12-31 08:00 | ECG_ITS ---
Test Date: 2024-12-31 08:23:59 Measurements Intervals Marissa Rate: 82 P: 54 MN: 183 QRS: 5 QRSD: 111 T: 110 QT: 409 QTc: 479 Interpretive Statements SINUS RHYTHM POSSIBLE LEFT ATRIAL ENLARGEMENT [-0.1mV P-WAVE IN V1/V2] LEFT VENTRICULAR HYPERTROPHY AND ST-T CHANGE Compared to ECG 12/30/2024 13:49:16 NO SIGNIFICANT CHANGES Electronically Signed On 12-31-2024 15:07:34 CDT by Александр Jin M.D.
[2024-12-31] MEDS: ASPIRIN 81 MG CHEWABLE TABLET PO (08:20)
[2024-12-31] MEDS: amLODIPine BESYLATE 10 MG TABLET PO (08:20)
[2024-12-31] MEDS: lisinopriL 5 MG TABLET PO ×2 (08:21→11:48)
[2024-12-31] MEDS: ENOXAPARIN 40 MG/0.4 ML SYRINGE SUB-Q (08:21)
[2024-12-31] MEDS: hydroCHLOROthiazide 12.5 MG CAPSULE PO (08:21)
[2024-12-31] MEDS: hydrALAZINE HCL 20 MG/ML VIAL 10 MG IV PUSH (10:02)
--- NOTE | 2024-12-31 12:09 | PM.IMPN ---
Progress Note: A&P Assessment and Plan (1) Hypertensive urgency: Code(s): I16.0 - Hypertensive urgency Status: Acute Assessment and Plan: - initial BP 219/115. Initial treatment with hydralazine 10 mg IVP with reduction to 187/108. Continue Amlodipine 10mg and Lisinopril 10mg, and HCTZ Nitro patch and monitor and adjust accordingly (2) Elevated troponin: Code(s): R79.89 - Other specified abnormal findings of blood chemistry Status: Acute Assessment and Plan: from Hypertensive emergency - EKG, initial:Sinus rhythm, rate 87, possible left atrial enlargement, LVH and ST-T change. No previous EKG available for comparison. Awaiting formal read. - CXR: Mild atelectasis/ scarring at the left costophrenic angle, no other acute cardiopulmonary disease. - Troponin: 0.073 x2, 6 hour ordered - ASA 324 given, continue as 81 daily trend troponin, ECHO ordered COntinue above blood pressure regimen and monitor cardiology consuled (3) Dyslipidemia: Code(s): E78.5 - Hyperlipidemia, unspecified Status: Acute Assessment and Plan: - recheck lipid panel (4) Elevated glucose: Code(s): R73.09 - Other abnormal glucose Status: Acute Assessment and Plan: - no history of diabetes, glucose 149 upon initial evaluation - check A1c -> 5.9%. Patient educated that he is considered prediabetic and recommended lifestyle changes such as diet changes and exercise. Patient reports understanding. Plan Diet: heart healthy GI Prophylaxis: not currently indicated DVT Prophylaxis: Lovenox SQ Code Status: full code Subjective Date/time seen: 12/31/24 12:09 Interval history: COmfortable at bedside Blood pressure still above 200, started on Nitro patch and blood pressure regimen adjusted Review of Systems Review of Systems: All systems reviewed & are unremarkable except as noted in HPI and below Exam Const: General: comfortable and no acute distress Other: In and , male, nontoxic appearance, obese body habitus HENMT: Face/Nose/Sinus: Normal nares present Mouth: Yes moist mucous membranes Eyes: General: appearance normal, both eyes and all related structures Sclera: sclerae normal Pupils: Equal, round and reactive pupils present EOM: EOMs intact bilaterally Resp: Effort & Inspection: normal respiratory effort Auscultation: clear to auscultation bilaterally Cardio: Rate: regular rate Rhythm: regular rhythm Other: S1-S2 present without murmur, rub, ectopy GI: Other: Abdomen rounded, soft, nontender. Normoactive bowel sounds in all quadrants. Skin: General skin exam: normal color and no rashes or lesions noted Wounds: no wounds Neuro: Cranial nerves: Yes Equal, round and reactive pupils present Speech: normal speech Motor exam (neuro): 5/5 motor strength present throughout Sensory Exam: normal sensation Other: A&O x4 Extrem: General: normal to inspection Psych: Mental Status: mental status grossly normal Affect: normal affect Other: Good insight judgment, pleasant Objective Data Vital Signs Vital Signs: Vital Signs - 24 hr 12/30/24 12:48 12/30/24 14:37 12/30/24 14:51 Temperature 97.2 F L Pulse Rate 93 85 84 Respiratory Rate 16 22 H 20 Blood Pressure 219/115 H 211/131 H 201/134 H Pulse Oximetry 97 98 98 Oxygen Delivery 12/30/24 14:57 12/30/24 15:16 12/30/24 15:31 Temperature Pulse Rate 79 84 85 Respiratory Rate 15 24 H 26 H Blood Pressure 201/134 H 203/120 H 206/127 H Pulse Oximetry 98 97 98 Oxygen Delivery 12/30/24 16:01 12/30/24 16:14 12/30/24 19:20 Temperature 97.5 F L Pulse Rate 82 92 Respiratory Rate 18 18 Blood Pressure 187/108 H 220/124 H Pulse Oximetry 99 99 99 Oxygen Delivery 12/30/24 20:00 12/30/24 20:00 12/30/24 21:25 Temperature Pulse Rate 86 Respiratory Rate Blood Pressure 201/102 H Pulse Oximetry Oxygen Delivery Room Air 12/30/24 22:00 12/30/24 22:36 12/30/24 22:38 Temperature Pulse Rate 90 Respiratory Rate Blood Pressure 183/90 H Pulse Oximetry 99 Oxygen Delivery Room Air 12/30/24 23:34 12/31/24 00:00 12/31/24 00:00 Temperature 97.8 F Pulse Rate 93 93 Respiratory Rate 17 Blood Pressure 198/98 H Pulse Oximetry 98 Oxygen Delivery Room Air 12/31/24 02:00 12/31/24 03:35 12/31/24 04:00 Temperature 98.2 F Pulse Rate 96 97 98 Respiratory Rate 16 Blood Pressure 195/95 H Pulse Oximetry 98 Oxygen Delivery 12/31/24 04:00 12/31/24 06:00 12/31/24 08:00 Temperature 97.8 F Pulse Rate 88 85 Respiratory Rate 18 Blood Pressure 206/128 H Pulse Oximetry 99 Oxygen Delivery Room Air 12/31/24 08:00 12/31/24 10:00 12/31/24 10:00 Temperature Pulse Rate 82 83 Respiratory Rate Blood Pressure 207/140 H Pulse Oximetry Oxygen Delivery 12/31/24 10:20 Temperature Pulse Rate Respiratory Rate Blood Pressure 201/118 H Pulse Oximetry Oxygen Delivery Intake/Output Intake/Output: Intake & Output 12/28/24 12/29/24 12/30/24 12/31/24 23:59 23:59 23:59 23:59 Intake Total 360 Output Total 650 Balance -290 Meds/Results Medications: Active Medications Generic Name Dose Route Start Last Admin Trade Name Freq PRN Reason Stop Dose Admin Acetaminophen 650 mg 12/30/24 15:48 Acetaminophen 325 Mg Tablet PO Q4H PRN Mild Pain (1-3) or Fever Amlodipine Besylate 10 mg 12/31/24 09:00 12/31/24 08:20 Amlodipine Besylate 10 Mg Tablet PO 10 mg DAILY CHRISTOPHER Administration Aspirin 81 mg 12/31/24 08:00 12/31/24 08:20 Aspirin 81 Mg Chewable Tablet PO 81 mg DAILY@0800 CHRISTOPHER Administration Enoxaparin Sodium 40 mg 12/31/24 09:00 12/31/24 08:21 Enoxaparin 40 Mg/0.4 Ml Syringe SUB-Q 40 mg DAILY CHRISTOPHER Administration Hydralazine HCl 10 mg 12/30/24 20:23 12/31/24 10:02 Hydralazine Hcl 20 Mg/Ml Vial IV PUSH 10 mg Q8H PRN Administration BP greater than 200/100 Hydrochlorothiazide 12.5 mg 12/31/24 09:00 12/31/24 08:21 Hydrochlorothiazide 12.5 Mg Capsule PO 12.5 mg QAM [facility] Administration Lisinopril 10 mg 01/01/25 09:00 Lisinopril 10 Mg Tablet PO QAM [facility] Nitroglycerin 0.4 mg 12/30/24 16:21 Nitroglycerin Sl 0.4 Mg Tablet SUBLINGUAL Q5MIN PRN Chest Pain Nitroglycerin 1 inch 12/31/24 12:10 Nitroglycerin Ointment 1 Inch Dose TRANSDERM 05/30/25 12:11 ONCE ONE Ondansetron HCl 4 mg 12/30/24 15:48 Ondansetron Inj 4 Mg/2 Ml Vial IV PUSH Q4H PRN Nausea Perflutren Lipid Microsphere 0 ml 12/30/24 20:31 Perflutren Lipid Microspheres 1.5 Ml Vial Diluted To 10 Ml Total Volume IV PUSH 01/02/25 20:31 ONCE PRN adequate visualization Protocol Radiology Results: ITS Impressions Chest X-Ray 12/30/24 14:58 IMPRESSION: 1. Mild atelectasis/scarring at the left costophrenic angle. No other acute cardiopulmonary disease. Labs Labs: Laboratory Results - last 24 hr 12/30/24 12/30/24 12/30/24 13:53 17:29 21:48 WBC 6.5 RBC 4.49 L Hgb 14.2 Hct 42.7 MCV 95.1 MCH 31.6 MCHC 33.3 RDW 12.4 Plt Count 168 MPV 9.9 Immature Gran % (Auto) 0.3 Neut % (Auto) 64.9 Lymph % (Auto) 22.9 [place] % (Auto) 9.2 H Eos % (Auto) 2.2 Baso % (Auto) 0.5 Lymph # (Auto) 1.49 [place] # (Auto) 0.6 Eos # (Auto) 0.1 Baso # (Auto) 0.0 Abs Immat Gran (auto) 0.02 Absolute Neuts (auto) 4.2 Absolute Nucleated RBC 0.000 Nucleated RBC % 0.0 PT 12.6 INR 0.9 APTT 26.2 Sodium 137 Potassium 3.7 Chloride 105 Carbon Dioxide 25 Anion Gap 7 BUN 27 H D Creatinine 1.09 Estim Creat Clear Calc 89 Estimated GFR > 60 Glucose 149 H Hemoglobin A1c 5.9 H Calcium 9.2 Total Bilirubin 0.6 AST 48 ALT 47 Alkaline Phosphatase 108 Troponin I 0.073 H* 0.073 H* 0.078 H* NT-Pro-B Natriuret Pep 3750 H Total Protein 7.0 Albumin 4.0 Triglycerides 114 Cholesterol 306 H LDL Cholesterol Direct 191 HDL Direct 77 Lipase 227 Quality VTE Prophylaxis VTE prophylaxis: pharmacologic ordered
[2024-12-31] MEDS: NITROGLYCERIN OINTMENT 1 INCH DOSE TRANSDERM (12:16)
[2024-12-31] MEDS: PERFLUTREN LIPID MICROSPHERES 1.5 ML VIAL DILUTED TO 10 ML TOTAL VOLUME IV PUSH (12:30)
--- NOTE | 2024-12-31 12:39 | PM.CNCAR ---
Assessment and Plan Assessment and plan (1) Hypertensive urgency: Code(s): I16.0 - Hypertensive urgency Status: Acute Assessment and Plan: Presents to the hospital with hypertensive urgency secondary to medication noncompliance. Blood pressure is improving on amlodipine, lisinopril, and hydrochlorothiazide. Want to decrease SBP gradually, so will increase lisinopril to 10mg daily starting tomorrow Can further increase lisinopril to meet BP goal Can also add beta nadeem, MRA if further BP control is needed Echo shows normal LV function with some LV hypertrophy, moderate TAMIA, pulmonary HTN (2) Elevated troponin: Code(s): R79.89 - Other specified abnormal findings of blood chemistry Status: Acute Assessment and Plan: Mildly elevated and flat. Does not represent ACS, rather this is most likely mildly elevated secondary to significant hypertension. Cannot rule out underlying CAD, and given his risk factors outpatient stress testing would be appropriate for risk stratification. (3) Smoking 1/2 pack a day or less: Code(s): F17.210 - Nicotine dependence, cigarettes, uncomplicated Status: Acute Assessment and Plan: Smoking cessation counseling performed. History of Present Illness History of Present Illness Consult date/time: 12/31/24 12:39 Requesting physician: Romeo Steve MD Consult reason: hypertension Reason For Visit: hypertensive urgency,elevated troponin Narrative: Tevin Rey is a 54 year old male with history of tobacco abuse, obesity, dyslipidemia, and uncontrolled hypertension. He was sent to the hospital from his PCP's office for hypertensive urgency. Cardiology is consulted for hypertension. Blood pressure here was initially 230/148 mmHg. He was hospitalized here in 2020 because of high blood pressure in. Following his release from the hospital, he did not have his medications refilled because his primary care doctor retired and he did not get a new 1. Therefore, his hypertension has not been treated for the past 4 years. He denies any chest pain, palpitations. He does have shortness of breath with exertion. On the time of my evaluation, he is feeling well and does not have any active complaints. Review of Systems Review of Systems: All systems reviewed & are unremarkable except as noted in HPI and below PMFSH Past Medical History Medical History Tobacco abuse Hypertension BMI 38.0-38.9,adult Dyslipidemia Family History Family History Mother Hypertension Grandparent Diabetes mellitus Father No problems noted. Sibling No problems noted. Social History Social History Smoking packs per day: 1 Smoking cigarettes per day: 20.0 Years smoked: 40 Smoking pack-years: 40.00 Smoking status: Current every day smoker Tobacco type: cigarettes Second hand tobacco smoke exposure: No Alcohol intake: current Drinks per week: 42 Substance use: never Substance use type: does not use Do You Feel Safe in your Home?: Yes Lack of Transportation: No Lack of Food: Never True Current Housing: I Have Housing Concerned About Future Housing: No Difficulty Paying Gas/Electric Bills: No Difficulty Paying for Meds: No Currently Unemployed: No Education: High School Diploma/GED Difficulty w/ Childcare or Family Care: No Living arrangements: with family 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 Gender identity (if verbalized by the patient): Male Spiritual care concerns: No Meds Home Medications and Allergies Allergies Allergy/AdvReac Type Severity Reaction Status Date / Time naproxen (From Aleve) Allergy Itching Verified 12/30/24 12:50 Vital Signs Vital Signs - 24 hr 12/30/24 12:48 12/30/24 14:37 12/30/24 14:51 Temperature 36.2 C L Pulse Rate 93 85 84 Respiratory Rate 16 22 H 20 Blood Pressure 219/115 H 211/131 H 201/134 H Pulse Oximetry 97 98 98 Oxygen Delivery 12/30/24 14:57 12/30/24 15:16 12/30/24 15:31 Temperature Pulse Rate 79 84 85 Respiratory Rate 15 24 H 26 H Blood Pressure 201/134 H 203/120 H 206/127 H Pulse Oximetry 98 97 98 Oxygen Delivery 12/30/24 16:01 12/30/24 16:14 12/30/24 19:20 Temperature 36.4 C L Pulse Rate 82 92 Respiratory Rate 18 18 Blood Pressure 187/108 H 220/124 H Pulse Oximetry 99 99 99 Oxygen Delivery 12/30/24 20:00 12/30/24 20:00 12/30/24 21:25 Temperature Pulse Rate 86 Respiratory Rate Blood Pressure 201/102 H Pulse Oximetry Oxygen Delivery Room Air 12/30/24 22:00 12/30/24 22:36 12/30/24 22:38 Temperature Pulse Rate 90 Respiratory Rate Blood Pressure 183/90 H Pulse Oximetry 99 Oxygen Delivery Room Air 12/30/24 23:34 12/31/24 00:00 12/31/24 00:00 Temperature 36.6 C Pulse Rate 93 93 Respiratory Rate 17 Blood Pressure 198/98 H Pulse Oximetry 98 Oxygen Delivery Room Air 12/31/24 02:00 12/31/24 03:35 12/31/24 04:00 Temperature 36.8 C Pulse Rate 96 97 98 Respiratory Rate 16 Blood Pressure 195/95 H Pulse Oximetry 98 Oxygen Delivery 12/31/24 04:00 12/31/24 06:00 12/31/24 08:00 Temperature 36.6 C Pulse Rate 88 85 Respiratory Rate 18 Blood Pressure 206/128 H Pulse Oximetry 99 Oxygen Delivery Room Air 12/31/24 08:00 12/31/24 10:00 12/31/24 10:00 Temperature Pulse Rate 82 83 Respiratory Rate Blood Pressure 207/140 H Pulse Oximetry Oxygen Delivery 12/31/24 10:20 12/31/24 12:00 Temperature 36.6 C Pulse Rate 84 Respiratory Rate 22 H Blood Pressure 201/118 H 195/85 H Pulse Oximetry 99 Oxygen Delivery Exam Const: General: comfortable, no acute distress, alert and awake Orientation/consciousness: patient oriented x3 HENMT: Head: normal to inspection Eyes: General: appearance normal, both eyes and all related structures Pupils: Equal, round and reactive pupils present Neck: Neck: normal visual inspection, supple and no JVD Carotids: no bruits Resp: Effort & Inspection: normal respiratory effort Auscultation: clear to auscultation bilaterally and diminished lung sounds Cardio: Rate: regular rate Rhythm: regular rhythm Heart sounds: S1 normal heart sound present, S2 normal heart sound present and no murmurs GI: Auscultation: normal bowel sounds Skin: General skin exam: normal color Neuro: General: patient oriented x3 Cranial nerves: Yes Equal, round and reactive pupils present Extrem: General: normal to inspection Psych: Appearance: grossly normal Mental Status: mental status grossly normal Results Labs and Meds 12/30/24 13:53 12/30/24 13:53 Lab results: Cardiac Enzymes 12/30/24 12/30/24 12/30/24 Range/Units 13:53 17:29 21:48 AST 48 (17-59) U/L Troponin I 0.073 H* 0.073 H* 0.078 H* (0.000-0.034) ng/mL Coagulation 12/30/24 Range/Units 13:53 PT 12.6 (11.1-14.7) Seconds APTT 26.2 (22.3-36.8) Seconds Lipids 12/30/24 Range/Units 21:48 Triglycerides 114 (<150) mg/dL Cholesterol 306 H (0-200) mg/dL CBC 12/30/24 Range/Units 13:53 WBC 6.5 (4.5-10.0) K/mm3 RBC 4.49 L (4.6-6.20) M/mm3 Hgb 14.2 (14.0-18.0) g/dL Hct 42.7 (42.0-52.0) % Plt Count 168 (150-375) k/mm3 Lymph # (Auto) 1.49 (0.9-3.2) K/mm3 [place] # (Auto) 0.6 (0.1-0.6) K/mm3 Eos # (Auto) 0.1 (0-0.3) K/mm3 Baso # (Auto) 0.0 (0.0-0.1) K/mm3 Comprehensive Metabolic Panel 12/30/24 Range/Units 13:53 Sodium 137 (137-145) mmol/L Potassium 3.7 (3.4-5.0) mmol/L Chloride 105 (98-107) mmol/L Carbon Dioxide 25 (22-30) mmol/L BUN 27 H D (9-20) mg/dL Creatinine 1.09 (0.7-1.3) mg/dL Glucose 149 H (65-110) mg/dL Calcium 9.2 (8.4-10.2) mg/dL AST 48 (17-59) U/L ALT 47 (6-50) U/L Alkaline Phosphatase 108 (38-126) U/L Total Protein 7.0 (6.3-8.2) g/dL Albumin 4.0 (3.5-5.1) g/dL Intake and Output 12/30/24 12/31/2412/31/25 23:59 07:59 15:59 Intake Total 720 Output Total 650 450 Balance -650 270 Intake: Oral 720 Output: Urine 650 450 Other: # Unmeasured Voids 3 Patient Weight 12/31/24 23:59 Weight 111.8 kg
--- NOTE | 2024-12-31 12:56 | IVDEFINITY ---
Prior to administration of IV Definity the patient was educated on the risks and benefits of the imaging enhancing agent including potential adverse side effects. The patient verbalized understanding. Allergies were verified. No exclusion criteria were identified and at least one of the following inclusion criteria were met: 1) physician request, 2) patient technically difficult to image (per the [place] [employer] guidelines of two or more segments not discernable within the apical view), or 3) questionable left ventricular function. ?
[2024-12-31 17:22] LABS: Troponin I 0.062 ng/mL (0.000-0.034)
[2024-12-31 20:45] LABS: Troponin I 0.062 ng/mL (0.000-0.034)
[2025-01-01] VITALS (20 sets, daily range): BP systolic 153–191; BP diastolic 83–130; PULSE 64–84; RESP 14–20; TEMP 36.4–36.7; O2SAT 95–100
[2025-01-01 04:55] LABS: Basophils Percent Auto 0.4 % (0.2-1.2); Eosinophils Absolute Auto 0.2 K/mm3 (0-0.3); Eosinophils Percent Auto 2.5 % (0-4.4); Hematocrit 44.6 % (42.0-52.0); Hemoglobin 14.6 g/dL (14.0-18.0); Immature Granulocyte Absolute 0.02 K/mm3 (0.00-0.031); Immature Granulocyte Percent A 0.3 % (0-0.5); Lymphocytes Absolute Auto 1.53 K/mm3 (0.9-3.2); Lymphocytes Percent Auto 21.6 % (18.3-44.2); Mean Corpuscular HGB Conc 32.7 g/dl (32-36); Mean Corpuscular Hemoglobin 31.6 pg (26-34); Mean Corpuscular Volume 96.5 fl (80-100); Mean Platelet Volume 10.6 fl (7.4-10.4); Monocytes Absolute Auto 0.6 K/mm3 (0.1-0.6); Monocytes Percent Auto 9.1 % (2.6-8.5); Neutrophils Absolute Auto 4.7 K/mm3 (1.3-6.7); Neutrophils Percent Auto 66.1 % (45.5-73.1); Platelet Count Result 175 k/mm3 (150-375); Red Blood Count 4.62 M/mm3 (4.6-6.20); Red Cell Distribution Width 12.5 % (11.5-14.5); White Blood Count 7.1 K/mm3 (4.5-10.0)
[2025-01-01 05:13] LABS: Alanine Aminotransferase 38 U/L (6-50); Albumin Level 3.6 g/dL (3.5-5.1); Alkaline Phosphatase 84 U/L (38-126); Anion Gap 7 mmol/L (4-12); Aspartate Amino Transferase 37 U/L (17-59); Bilirubin,Total 0.7 mg/dL (0.2-1.3); Blood Urea Nitrogen 20 mg/dL (9-20); Calcium 9.1 mg/dL (8.4-10.2); Carbon Dioxide 24 mmol/L (22-30); Chloride 108 mmol/L (98-107); Estimated CRCL calculation 85 ml/min; Estimated Glomerular Filt Rate > 60; Glucose 113 mg/dL (65-110); Magnesium 2.3 mg/dL (1.6-2.3); Potassium 3.6 mmol/L (3.4-5.0); Sodium 139 mmol/L (137-145)
[2025-01-01] MEDS: hydroCHLOROthiazide 12.5 MG CAPSULE PO ×2 (08:16→14:51)
[2025-01-01] MEDS: amLODIPine BESYLATE 10 MG TABLET PO (08:16)
[2025-01-01] MEDS: ASPIRIN 81 MG CHEWABLE TABLET PO (08:16)
[2025-01-01] MEDS: ACETAMINOPHEN 325 MG TABLET 650 MG PO ×2 (08:17→14:52)
[2025-01-01] MEDS: lisinopriL 20 MG TABLET PO (08:17)
--- NOTE | 2025-01-01 10:48 | PM.PNCARD ---
Progress Note: A&P Assessment and Plan (1) Hypertensive urgency: Code(s): I16.0 - Hypertensive urgency Status: Acute Plan 54-year-old man with essential hypertension admitted with hypertensive urgency because of non adherence to medication and follow-up. He is still hypertensive but blood pressure is significantly improved. I am going to add metoprolol XL to his regimen and I believe he is stable enough to be discharged on this regimen and follow-up with his PCP. Follow-up in our office at this point I do not believe was necessary as long as he is adherent to follow-up with his primary physician. Obviously smoking cessation is to be recommended and I also spoke to him about this as well Armando Millan MD [facility] Subjective Date/time seen: Date of service: 01/01/25 10:48 Interval history: Follow-up visit in this 54-year-old man with: Longstanding hypertension admitted with hypertensive urgency because of noncompliance with medication and follow-up. BLAYNE-inhibitor and calcium channel nadeem have been started. Blood pressure is still elevated but much better. He is asymptomatic and feels well. Exam Const: Other: Pleasant obese man no apparent distress HENMT: Mouth: Yes moist mucous membranes Eyes: Sclera: sclerae normal Neck: Neck: supple and no JVD Resp: Effort & Inspection: normal respiratory effort Auscultation: clear to auscultation bilaterally Cardio: Rate: regular rate Rhythm: regular rhythm Other: PMI difficult to palpate, no audible murmur S4 is audible GI: GI Palp: Yes Soft to palpation Auscultation: normal bowel sounds Skin: General skin exam: normal color Neuro: Other: Alert and oriented x3 Extrem: General: normal to inspection Objective Data Vital Signs Vital Signs: Vital Signs - 24 hr 12/31/24 12:00 12/31/24 12:00 12/31/24 13:00 Temperature 36.6 C Pulse Rate 84 83 Respiratory Rate 22 H Blood Pressure 195/85 H 154/80 H Pulse Oximetry 99 Oxygen Delivery 12/31/24 14:00 12/31/24 16:00 12/31/24 16:00 Temperature 36.6 C Pulse Rate 73 82 82 Respiratory Rate 18 Blood Pressure 159/96 H Pulse Oximetry 99 Oxygen Delivery 12/31/24 18:00 12/31/24 20:00 12/31/24 20:00 Temperature 36.6 C Pulse Rate 82 85 80 Respiratory Rate 18 Blood Pressure 164/82 H Pulse Oximetry 100 Oxygen Delivery 12/31/24 21:00 12/31/24 22:00 12/31/24 22:12 Temperature Pulse Rate 81 Respiratory Rate Blood Pressure Pulse Oximetry 100 Oxygen Delivery Room Air Room Air 12/31/24 23:59 01/01/25 00:00 01/01/25 00:00 Temperature 36.6 C Pulse Rate 76 76 Respiratory Rate 18 Blood Pressure 178/97 H Pulse Oximetry 100 Oxygen Delivery Room Air 01/01/25 02:00 01/01/25 04:00 01/01/25 04:00 Temperature Pulse Rate 77 84 Respiratory Rate Blood Pressure Pulse Oximetry Oxygen Delivery Room Air 01/01/25 04:00 01/01/25 05:36 01/01/25 06:00 Temperature 36.4 C L Pulse Rate 79 70 Respiratory Rate 18 Blood Pressure 167/122 H 176/84 H Pulse Oximetry 100 Oxygen Delivery 01/01/25 07:33 01/01/25 08:00 01/01/25 08:01 Temperature 36.5 C Pulse Rate 77 Respiratory Rate 14 Blood Pressure 191/119 H 170/102 H Pulse Oximetry 98 98 Oxygen Delivery Room Air 01/01/25 10:20 Temperature Pulse Rate Respiratory Rate Blood Pressure 161/85 H Pulse Oximetry Oxygen Delivery Intake/Output Intake/Output: Intake & Output 12/29/24 12/30/24 12/31/24 01/01/25 23:59 23:59 23:59 23:59 Intake Total 1740 540 Output Total 1100 675 Balance 640 -135 Meds/Results Medications: Active Medications Generic Name Dose Route Start Last Admin Trade Name Freq PRN Reason Stop Dose Admin Acetaminophen 650 mg 12/30/24 15:48 01/01/25 08:17 Acetaminophen 325 Mg Tablet PO 650 mg Q4H PRN Administration Mild Pain (1-3) or Fever Amlodipine Besylate 10 mg 12/31/24 09:00 01/01/25 08:16 Amlodipine Besylate 10 Mg Tablet PO 10 mg DAILY CHRISTOPHER Administration Aspirin 81 mg 12/31/24 08:00 01/01/25 08:16 Aspirin 81 Mg Chewable Tablet PO 81 mg DAILY@0800 CHRISTOPHER Administration Enoxaparin Sodium 40 mg 12/31/24 09:00 01/01/25 08:16 Enoxaparin 40 Mg/0.4 Ml Syringe SUB-Q Not Given DAILY CHRISTOPHER Hydralazine HCl 10 mg 12/30/24 20:23 12/31/24 10:02 Hydralazine Hcl 20 Mg/Ml Vial IV PUSH 10 mg Q8H PRN Administration BP greater than 200/100 Hydrochlorothiazide 12.5 mg 12/31/24 09:00 01/01/25 08:16 Hydrochlorothiazide 12.5 Mg Capsule PO 12.5 mg QAM CHRISTOPHER Administration Lisinopril 20 mg 01/01/25 09:00 01/01/25 08:17 Lisinopril 20 Mg Tablet PO 20 mg QAM CHRISTOPHER Administration Nitroglycerin 0.4 mg 12/30/24 16:21 Nitroglycerin Sl 0.4 Mg Tablet SUBLINGUAL Q5MIN PRN Chest Pain Ondansetron HCl 4 mg 12/30/24 15:48 Ondansetron Inj 4 Mg/2 Ml Vial IV PUSH Q4H PRN Nausea Radiology Results: ITS Impressions Chest X-Ray 12/30/24 14:58 IMPRESSION: 1. Mild atelectasis/scarring at the left costophrenic angle. No other acute cardiopulmonary disease. Labs Labs: Laboratory Results - last 24 hr 12/31/24 12/31/24 12/31/24 12:48 16:44 20:08 WBC RBC Hgb Hct MCV MCH MCHC RDW Plt Count MPV Immature Gran % (Auto) Neut % (Auto) Lymph % (Auto) [place] % (Auto) Eos % (Auto) Baso % (Auto) Lymph # (Auto) [place] # (Auto) Eos # (Auto) Baso # (Auto) Abs Immat Gran (auto) Absolute Neuts (auto) Absolute Nucleated RBC Nucleated RBC % Sodium Potassium Chloride Carbon Dioxide Anion Gap BUN Creatinine Estim Creat Clear Calc Estimated GFR Glucose Calcium Magnesium Total Bilirubin AST ALT Alkaline Phosphatase Troponin I 0.060 H* 0.062 H* 0.062 H* Total Protein Albumin 01/01/25 04:05 WBC 7.1 RBC 4.62 Hgb 14.6 Hct 44.6 MCV 96.5 MCH 31.6 MCHC 32.7 RDW 12.5 Plt Count 175 MPV 10.6 H Immature Gran % (Auto) 0.3 Neut % (Auto) 66.1 Lymph % (Auto) 21.6 [place] % (Auto) 9.1 H Eos % (Auto) 2.5 Baso % (Auto) 0.4 Lymph # (Auto) 1.53 [place] # (Auto) 0.6 Eos # (Auto) 0.2 Baso # (Auto) 0.0 Abs Immat Gran (auto) 0.02 Absolute Neuts (auto) 4.7 Absolute Nucleated RBC 0.000 Nucleated RBC % 0.0 Sodium 139 Potassium 3.6 Chloride 108 H Carbon Dioxide 24 Anion Gap 7 BUN 20 Creatinine 1.10 Estim Creat Clear Calc 85 Estimated GFR > 60 Glucose 113 H Calcium 9.1 Magnesium 2.3 Total Bilirubin 0.7 AST 37 ALT 38 Alkaline Phosphatase 84 Troponin I Total Protein 7.0 Albumin 3.6
[2025-01-01] MEDS: NICOTINE (*PBKC) 14 MG PATCH 1 PATCH TRANSDERM (12:14)
[2025-01-01] MEDS: METOPROLOL SUCCINATE EXT REL 50 MG TABCR PO (12:25)
--- NOTE | 2025-01-01 15:45 | P.PNIM_ITS ---
Progress Note: A&P Assessment and Plan (1) Hypertensive urgency: Code(s): I16.0 - Hypertensive urgency Status: Acute Assessment and Plan: - initial BP 219/115. today 168/130 Continue Amlodipine 10mg adjusted Lisinopril to 20mg and HCTZ 25mg Continue Metoprolol per cardiology cardiology following (2) Elevated troponin: Code(s): R79.89 - Other specified abnormal findings of blood chemistry Status: Acute Assessment and Plan: from Hypertensive emergency - EKG, initial:Sinus rhythm, rate 87, possible left atrial enlargement, LVH and ST-T change. No previous EKG available for comparison. Awaiting formal read. - CXR: Mild atelectasis/ scarring at the left costophrenic angle, no other acute cardiopulmonary disease. - Troponin: 0.073 x2, 6 hour ordered - ASA 324 given, continue as 81 daily ECHo showed EF 60-65% with abnormal left ventricular function COntinue above blood pressure regimen and monitor cardiology following (3) Dyslipidemia: Code(s): E78.5 - Hyperlipidemia, unspecified Status: Acute Assessment and Plan: - recheck lipid panel (4) Elevated glucose: Code(s): R73.09 - Other abnormal glucose Status: Acute Assessment and Plan: - no history of diabetes, glucose 149 upon initial evaluation - check A1c -> 5.9%. Patient educated that he is considered prediabetic and recommended lifestyle changes such as diet changes and exercise. Patient reports understanding. Plan Diet: heart healthy GI Prophylaxis: not currently indicated DVT Prophylaxis: Lovenox SQ Code Status: full code Subjective Date/time seen: 01/01/25 15:45 Interval history: Comfortable at bedside BP still severe elevated, Meds adjusted Review of Systems Review of Systems: All systems reviewed & are unremarkable except as noted in HPI and below Exam Const: General: comfortable and no acute distress Other: In and , male, nontoxic appearance, obese body habitus HENMT: Face/Nose/Sinus: Normal nares present Mouth: Yes moist mucous membranes Eyes: General: appearance normal, both eyes and all related structures Sclera: sclerae normal Pupils: Equal, round and reactive pupils present EOM: EOMs intact bilaterally Resp: Effort & Inspection: normal respiratory effort Auscultation: clear to auscultation bilaterally Cardio: Rate: regular rate Rhythm: regular rhythm Other: S1-S2 present without murmur, rub, ectopy GI: Other: Abdomen rounded, soft, nontender. Normoactive bowel sounds in all quadrants. Skin: General skin exam: normal color and no rashes or lesions noted Wounds: no wounds Neuro: Cranial nerves: Yes Equal, round and reactive pupils present Speech: normal speech Motor exam (neuro): 5/5 motor strength present throughout Sensory Exam: normal sensation Other: A&O x4 Extrem: General: normal to inspection Psych: Mental Status: mental status grossly normal Affect: normal affect Other: Good insight judgment, pleasant Objective Data Vital Signs Vital Signs: Vital Signs - 24 hr 12/31/24 16:00 12/31/24 16:00 12/31/24 18:00 Temperature 97.8 F Pulse Rate 82 82 82 Respiratory Rate 18 Blood Pressure 159/96 H Pulse Oximetry 99 Oxygen Delivery 12/31/24 20:00 12/31/24 20:00 12/31/24 21:00 Temperature 97.8 F Pulse Rate 85 80 Respiratory Rate 18 Blood Pressure 164/82 H Pulse Oximetry 100 Oxygen Delivery Room Air 12/31/24 22:00 12/31/24 22:12 12/31/24 23:59 Temperature 97.8 F Pulse Rate 81 76 Respiratory Rate 18 Blood Pressure 178/97 H Pulse Oximetry 100 100 Oxygen Delivery Room Air 01/01/25 00:00 01/01/25 00:00 01/01/25 02:00 Temperature Pulse Rate 76 77 Respiratory Rate Blood Pressure Pulse Oximetry Oxygen Delivery Room Air 01/01/25 04:00 01/01/25 04:00 01/01/25 04:00 Temperature 97.5 F L Pulse Rate 84 79 Respiratory Rate 18 Blood Pressure 167/122 H Pulse Oximetry 100 Oxygen Delivery Room Air 01/01/25 05:36 01/01/25 06:00 01/01/25 07:33 Temperature 97.7 F Pulse Rate 70 77 Respiratory Rate 14 Blood Pressure 176/84 H 191/119 H Pulse Oximetry 98 Oxygen Delivery 01/01/25 08:00 01/01/25 08:00 01/01/25 08:01 Temperature Pulse Rate 83 Respiratory Rate Blood Pressure 170/102 H Pulse Oximetry 98 Oxygen Delivery Room Air 01/01/25 10:00 01/01/25 10:20 01/01/25 11:24 Temperature 97.8 F Pulse Rate 74 75 Respiratory Rate 16 Blood Pressure 161/85 H 164/91 H Pulse Oximetry 99 Oxygen Delivery 01/01/25 12:00 01/01/25 12:25 01/01/25 14:30 Temperature Pulse Rate 75 77 Respiratory Rate Blood Pressure 168/130 H Pulse Oximetry Oxygen Delivery Intake/Output Intake/Output: Intake & Output 12/29/24 12/30/24 12/31/24 01/01/25 23:59 23:59 23:59 23:59 Intake Total 1740 780 Output Total 1100 675 Balance 640 105 Meds/Results Medications: Active Medications Generic Name Dose Route Start Last Admin Trade Name Freq PRN Reason Stop Dose Admin Acetaminophen 650 mg 12/30/24 15:48 01/01/25 14:52 Acetaminophen 325 Mg Tablet PO 650 mg Q4H PRN Administration Mild Pain (1-3) or Fever Amlodipine Besylate 10 mg 12/31/24 09:00 01/01/25 08:16 Amlodipine Besylate 10 Mg Tablet PO 10 mg DAILY [facility] Administration Aspirin 81 mg 12/31/24 08:00 01/01/25 08:16 Aspirin 81 Mg Chewable Tablet PO 81 mg DAILY@0800 [facility] Administration Enoxaparin Sodium 40 mg 12/31/24 09:00 01/01/25 08:16 Enoxaparin 40 Mg/0.4 Ml Syringe SUB-Q Not Given DAILY [facility] Hydralazine HCl 10 mg 12/30/24 20:23 12/31/24 10:02 Hydralazine Hcl 20 Mg/Ml Vial IV PUSH 10 mg Q8H PRN Administration BP greater than 200/100 Hydrochlorothiazide 25 mg 01/02/25 09:00 Hydrochlorothiazide 12.5 Mg Capsule PO QAM [facility] Lisinopril 20 mg 01/01/25 09:00 01/01/25 08:17 Lisinopril 20 Mg Tablet PO 20 mg QAM [facility] Administration Metoprolol Succinate 50 mg 01/02/25 09:00 Metoprolol Succinate Ext Rel 50 Mg [place]cr [facility] [place]otine 1 patch 01/01/25 11:52 01/01/25 12:14 Nicotine (*Pbkc) 14 Mg Patch TRANSDERM 1 patch DAILY [facility] Administration Nitroglycerin 0.4 mg 12/30/24 16:21 Nitroglycerin Sl 0.4 Mg Tablet SUBLINGUAL Q5MIN PRN Chest Pain Ondansetron HCl 4 mg 12/30/24 15:48 Ondansetron Inj 4 Mg/2 Ml Vial IV PUSH Q4H PRN Nausea Radiology Results: ITS Impressions Chest X-Ray 12/30/24 14:58 IMPRESSION: 1. Mild atelectasis/scarring at the left costophrenic angle. No other acute cardiopulmonary disease. Labs Labs: Laboratory Results - last 24 hr 12/31/24 12/31/24 01/01/25 16:44 20:08 04:05 WBC 7.1 RBC 4.62 Hgb 14.6 Hct 44.6 MCV 96.5 MCH 31.6 MCHC 32.7 RDW 12.5 Plt Count 175 MPV 10.6 H Immature Gran % (Auto) 0.3 Neut % (Auto) 66.1 Lymph % (Auto) 21.6 [place] % (Auto) 9.1 H Eos % (Auto) 2.5 Baso % (Auto) 0.4 Lymph # (Auto) 1.53 [place] # (Auto) 0.6 Eos # (Auto) 0.2 Baso # (Auto) 0.0 Abs Immat Gran (auto) 0.02 Absolute Neuts (auto) 4.7 Absolute Nucleated RBC 0.000 Nucleated RBC % 0.0 Sodium 139 Potassium 3.6 Chloride 108 H Carbon Dioxide 24 Anion Gap 7 BUN 20 Creatinine 1.10 Estim Creat Clear Calc 85 Estimated GFR > 60 Glucose 113 H Calcium 9.1 Magnesium 2.3 Total Bilirubin 0.7 AST 37 ALT 38 Alkaline Phosphatase 84 Troponin I 0.062 H* 0.062 H* Total Protein 7.0 Albumin 3.6 Quality VTE Prophylaxis VTE prophylaxis: pharmacologic ordered
--- NOTE | 2025-01-01 16:59 | PC.NURSE ---
pt transferred in to room 244 via wheelchair, oriented to new room and environment, reviewed plan of care, placed on court recording monitor per MD orders
[2025-01-02] VITALS: BP 166/93; PULSE 65; PULSE 70; RESP 16; TEMP 36.6; O2SAT 99
[2025-01-02 04:00] VITALS: PULSE 64
[2025-01-02] MEDS: hydrALAZINE HCL 20 MG/ML VIAL 10 MG IV PUSH (06:02)
[2025-01-02 06:07] VITALS: BP 174/104; PULSE 79; RESP 16; TEMP 36.5; O2SAT 97
[2025-01-02 06:51] VITALS: BP 148/86
[2025-01-02 08:00] VITALS: PULSE 84
--- NOTE | 2025-01-02 08:38 | PM.DS ---
DS: Admitting Diagnosis Discharge Date 01/02/25 Admitting Diagnosis Hypertension DS: Discharge Diagnosis Discharge Diagnosis (1) Hypertensive urgency: Code(s): I16.0 - Hypertensive urgency Status: Acute (2) Elevated troponin: Code(s): R79.89 - Other specified abnormal findings of blood chemistry Status: Acute DS: Summary Hospital Course Hospital Course: 54 y/o M with PMH of current everyday smoker, HLD, and HTN presents here with hypertension. The patient presents here from a local PCP office for further evaluation of hypertension. He was at the office to establish care when he was found to be significantly hypertensive. Upon arrival to the emergency department, the patient's blood pressure was 219/115. He reports associated mild headache. He denies vision changes or dizziness. He reports a history of hypertension. Last regularly took HTN medications in 2017. Reports poor compliance when he was prescribed the medication. Initial VS at presentation: 97.2? F, HR 93, R 16, 219/115, and 97% on RA. ED workup showed: No leukocytosis, no anemia, normal coags, creatinine 1.09 and GFR >60, initial troponin 0.073, BNP 3750. CXR showed mild atelectasis/ scarring at the left costophrenic angle, no other acute cardiopulmonary disease. EKG showed sinus rhythm, rate 87, possible left atrial enlargement, LVH and ST-T change. Patient was titrated to Amlodipine, Lisinopril, HCTZ and Metoprolol. These medications were titrated and BP is better today with Amlodipine 10mg, Lisinopril 20mg, HCTZ 25mg and Metoprolol 50mg daily. cardiology was consulted ALso evaluated for Elevated Troponin, however cardiology noted it is likely from from Elevated BP, ECHO Showed EF 60-65% with abnormal diastolic dysfunction. Follow up with PCP in 3-5 days, follow up with cardiology as instructed Time Spent with Patient Time attestation: Total time spent providing and/or coordinating discharge services: Discharge Plan Discharge Attending physician on discharge: Romeo Steve Consulting providers: Александр Jin Discharging Clinician: Romeo Steve Anticipated Discharge Date/Time: 01/02/25 08:36 Patient Disposition: Home Activity: as tolerated Diet: as tolerated and heart healthy Patient Instructions: Antibiotic Form Patient Language: [place] Stand Alone Forms: General Discharge Information Follow-up/Referrals: Александр Jin MD [Physician] - (F/u with cardiology as instructed ) Christina Alves APRN [Primary Care Provider] - (F/u with PCP in 3-5 days ) Discharge Medications: New amlodipine 10 mg Tablet 10 mg PO DAILY 30 Days Qty: 30 1RF metoprolol succinate 50 mg Tablet Extended Release 24 Hr 50 mg PO QAM 30 Days Qty: 30 1RF lisinopril 20 mg Tablet 20 mg PO QAM 30 Days Qty: 30 1RF hydrochlorothiazide 12.5 mg Capsule 25 mg PO QAM 30 Days Qty: 60 1RF Date of admission: 12/30/24 15:48 Primary Care Provider: Christina Alves Admitting Provider: Romeo Steve Attending physician on admission: Romeo Steve Condition: Stable
[2025-01-02] MEDS: ASPIRIN 81 MG CHEWABLE TABLET PO (09:40)
[2025-01-02] MEDS: lisinopriL 20 MG TABLET PO (09:40)
[2025-01-02] MEDS: amLODIPine BESYLATE 10 MG TABLET PO (09:40)
[2025-01-02] MEDS: hydroCHLOROthiazide 12.5 MG CAPSULE 25 MG PO (09:40)
[2025-01-02 09:41] VITALS: PULSE 79
[2025-01-02] MEDS: ENOXAPARIN 40 MG/0.4 ML SYRINGE SUB-Q (09:41)
[2025-01-02] MEDS: METOPROLOL SUCCINATE EXT REL 50 MG TABCR PO (09:41)
== END 2025-01-02 10:45 | disposition home or self-care (01) ==
LOC: ANHED 15:50 → ANHIMU 16:27 → ANH2MED 01-01 15:48
PROVIDERS: Physician Assistant; Student in an Organized Health Care Education/Training Program; Admitting Provider Internal Medicine; Emergency Provider Emergency Medicine; PCP Nurse Practitioner Family; Visit Provider Internal Medicine
DX: I16.0 Hypertensive urgency (principal); I10 Essential (primary) hypertension; R79.89 Other specified abnormal findings of blood chemistry; E78.5 Hyperlipidemia, unspecified; F17.210 Nicotine dependence, cigarettes, uncomplicated; R73.09 Other abnormal glucose; E66.9 Obesity, unspecified; Z68.35 Body mass index [BMI] 35.0-35.9, adult; Z91.148 Patient's other noncompliance with medication regimen for other reason
CPT/HCPCS: 36415; 71046; 80053; 80061; 83036; 83690; 83735; 83880; 84484; 85025; 85610; 85730; 93005; 96372; 96374; 96375; 99285; A9270; C8929; G0378; J0360; J1650; Q9957

== ENCOUNTER 2025-02-03 06:58 | Outpatient (CLI) | payer OTHER, SELFPAY ==
--- NOTE | ~2025-02-03 | CT_ITS ---
CT Scan of the Chest without Contrast: Clinical Indication: Lung cancer screening, nicotine dependence Technique: Contiguous sections were acquired throughout the chest without intravenous contrast. Dose reduction technique was used on this scan by utilizing automated exposure control and iterative recon struction technique. The dose-length product (DLP) was 367.48 mGy-cm. COMPARISON: 04/02/2021 Findings: There is no evidence of any significant mediastinal, hilar or axillary lymphadenopathy. The mediastin al soft tissues appear normal. There is no evidence of pleural or pericardial effusion. The lungs are clear. No pulmonary nodules or infiltrates are noted. Images through the upper abdomen reveal no abnormalities. Impression: Lung RADS 1: Negative. 12 month follow-up screening CT advised. Reviewed, dictated and finalized at location . Impression: Lung RADS 1: Negative. 12 month follow-up screening CT advised.
--- OUTSIDE RECORDS SUMMARY | 2025-02-03 07:02 | XMS_ITS | Clinical Summary ---
Author Organization [facility] Care Team Providers Care Associate Professor Of History Name Role Phone Unavailable Primary Care Provider [...]
--- OUTSIDE RECORDS SUMMARY | 2025-02-03 07:02 | XMS_ITS | Clinical Summary ---
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 Gender Identity Not on file Sexual Orientation Not on file Plan of Treatment Health Maintenance Due Date Last Done Comments Colorectal Cancer Screening Colonoscopy (10 Years) 1971 Annual Physical 1974 Hepatitis C 1989 DTaP, Tdap and Td Vaccines ( 1 - Tdap) 1990 Hepatitis B Vaccines (1 of 3 - 19+ 3-dose series) 1990 Pneumococcal Vaccine: 50+ Ye ars (1 of 1 - PCV) 2021 Zoster Vaccines (1 of 2) 2021 COVID-19 Vaccine ( - 2023-2 5 season) 2024 Meningococcal B Vaccine Aged Out No l onger eligible based on patient's age to complete this topic Meningococcal Vaccine Aged Out No syed shantel eligible based on patient's age to complete this topic RSV Immunizations Under 20 Months Aged Out No longer eligible based on patient's age to complete this topic
--- OUTSIDE RECORDS SUMMARY | 2025-02-03 07:02 | XMS_ITS | Clinical Summary ---
Author Organization [facility] [address] [place] [address] [address] [facility] [address] [place] [address] Care Team Providers Care Wastewater Operator Name Role Phone No, Physician Primary Care Provider [phone] Allergies Active Allergy Reactions Criticality Noted Date [...] Body mass index 40.0-44.9, adult (CMS/HCC) 05/02 Encounters Date Type Department Care Team Description 01/21/2025 Orders Only [facility] Cardiology [address] [facility] [address] [place] [address] Jossy Hammond NP 01/04/2025 Orders Only [facility] Cardiology [address] [facility] [address] [place] [address] Armando Millan MD from Last 3 Months Social History Tobacco Use Types Packs/Day Years Used Date Smoking Tobacco: Every Day Cigarettes Started: 05/02/2021 Smokeless Tobacco: Current Tobacco Cessation:Ready to Q uit: No; Counseling Given: Yes Personal Safety Answer Date Recorded Getting School Help Needed Not on file 09/28 Sex and Gender Information Value Date Recorded Sex Assigned at Not on file 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 Gender Identity Not on file Sexual Orientation [...] CDT Plan of Treatment Not on file Procedures Procedure Name Priority Date/Time Associated Diagnosis Comments CARDIOLOGY DOCUMENT SCAN Routine 01/01/2025 7:50 AM CDT CARDIOLOGY DOCUMENT SCAN Routine 12/31/2024 1:16 PM CDT from Last 3 Months Results * Cardiology Document Scan (01/01/2025 7:50 AM CDT) Anatomical Region Laterality Modality Other us Armando Millan MD CV CARDIAC SERVICES PROC EDURES Final Result * Cardiology Document Scan (12/31/2024 1:16 PM CDT) Anatomical Region Laterality Modality Other us Jossy Hammond NP CV CARDIAC SERVICES PROCEDUR ES Final Result from Last 3 Months Insurance [facility] CHOICE PLUS [facility] CHO[facility] PLUS Care Teams Wastewater Operator Relationship Specialty Start Date End Date No, Physician PCP - General 04/02/21
--- OUTSIDE RECORDS SUMMARY | 2025-02-03 07:02 | XMS_ITS | Referral Summary ---
Author Organization [facility] [address] [facility] [address] [facility] [address] [place] [address] Care Team Providers Care District Recruiter Name Role Phone No, Physician Primary Care Provider [phone] Encounters Date Type Department Care Team Description 01/21/2025 Orders Only [facility] Cardiology [address] [facility] [address] [place] [address] Jossy Hammond NP 01/04/2025 Orders Only [facility] Cardiology [address] [facility] [address] [place] [address] Armando Millan MD from Last 3 Months Allergies Active Allergy Reactions Criticality Noted Date [...] 0 05/02/2021 Body mass index 40.0-44.9, adult ([facility]) 05/02 Social History Tobacco Use Types Packs/Day Years Used Date Smoking Tobacco: Every Day Cigarettes Started: 05/02/2021 Smokeless Tobacco: Current Tobacco Cessation:Ready to Q uit: No; Counseling Given: Yes Personal Safety Answer Date Recorded Getting School Help Needed Not on file 09/28 Sex and Gender Information Value Date Recorded Sex Assigned at Not on file 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
== END 2025-02-03 06:59 | disposition home or self-care (01) ==
PROVIDERS: PCP Nurse Practitioner Family; Visit Provider Nurse Practitioner Family
DX: Z12.2 Encounter for screening for malignant neoplasm of respiratory organs (principal); Z87.891 Personal history of nicotine dependence
CPT/HCPCS: 71271